=== PATIENT | male | born 1950 | race Caucasian/White ===

== ENCOUNTER 2016-09-13 10:22 | Outpatient (CLI) | payer MEDICARE, MEDICAID | END 2016-09-13 10:23 | disposition home or self-care (01) | DX: Z79.01 Long term (current) use of anticoagulants (principal); I48.91 Unspecified atrial fibrillation ==

== ENCOUNTER 2016-09-23 08:00 | Outpatient (CLI) | payer MEDICARE, MEDICAID | END 2016-09-23 23:59 | DX: I48.91 Unspecified atrial fibrillation (principal); Z79.01 Long term (current) use of anticoagulants ==

== ENCOUNTER 2016-09-30 13:48 | Outpatient (CLI) | payer MEDICARE, MEDICAID | END 2016-09-30 13:49 | disposition home or self-care (01) | DX: I48.91 Unspecified atrial fibrillation (principal); Z79.01 Long term (current) use of anticoagulants ==

== ENCOUNTER 2016-10-08 13:16 | Outpatient (CLI) | payer MEDICARE, MEDICAID | END 2016-10-08 13:17 | disposition home or self-care (01) | DX: I48.91 Unspecified atrial fibrillation (principal) ==

== ENCOUNTER 2016-10-21 08:20 | Outpatient (CLI) | payer MEDICARE, MEDICAID | END 2016-10-21 08:21 | disposition home or self-care (01) | DX: I48.91 Unspecified atrial fibrillation (principal); Z79.01 Long term (current) use of anticoagulants ==

== ENCOUNTER 2016-11-18 08:00 | Outpatient (CLI) | payer MEDICARE, MEDICAID | END 2016-11-18 08:01 | disposition home or self-care (01) | DX: I48.91 Unspecified atrial fibrillation (principal); Z79.01 Long term (current) use of anticoagulants ==

== ENCOUNTER 2016-12-16 08:00 | Outpatient (CLI) | payer MEDICARE, MEDICAID | END 2016-12-16 08:01 | DX: I48.91 Unspecified atrial fibrillation (principal); Z79.01 Long term (current) use of anticoagulants ==

== ENCOUNTER 2016-12-18 15:21 | Outpatient (CLI) | payer MEDICARE, MEDICAID | END 2016-12-18 15:22 | disposition home or self-care (01) | DX: R53.83 Other fatigue (principal) ==

== ENCOUNTER 2016-12-18 16:17 | Emergency (ER) | payer MEDICARE, MEDICAID ==
[2016-12-18] MEDS ORDERED: IOPAMIDOL-300 100 ML VIAL IVP ONE (20:21)
== END 2016-12-18 21:31 | disposition home or self-care (01) ==
DX: I48.91 Unspecified atrial fibrillation (principal); R53.83 Other fatigue; K80.20 Calculus of gallbladder without cholecystitis without obstruction; Z95.2 Presence of prosthetic heart valve; Z79.01 Long term (current) use of anticoagulants
CPT/HCPCS: 74160; 80053; 83690; 84484; 85025; 85610; 93005; 93010; 99284; 99285; Q9967

== ENCOUNTER 2017-01-06 13:34 | Outpatient (CLI) | payer MEDICARE, MEDICAID | END 2017-01-06 13:35 | disposition home or self-care (01) | DX: Z79.01 Long term (current) use of anticoagulants (principal); I48.91 Unspecified atrial fibrillation ==

== ENCOUNTER 2017-01-13 14:30 | Outpatient (CLI) | payer MEDICARE, MEDICAID | END 2017-01-13 14:31 | disposition home or self-care (01) | DX: I48.91 Unspecified atrial fibrillation (principal); Z79.01 Long term (current) use of anticoagulants ==

== ENCOUNTER 2017-01-20 12:48 | Outpatient (CLI) | payer MEDICARE, MEDICAID | END 2017-01-20 12:49 | disposition home or self-care (01) | LOC: LAB.S 12:48 | PROVIDERS: ATTEND Nurse Practitioner Family | DX: I48.91 Unspecified atrial fibrillation (principal); Z79.01 Long term (current) use of anticoagulants | CPT/HCPCS: 85610 ==

== ENCOUNTER 2017-02-24 13:20 | Outpatient (CLI) | payer MEDICARE, MEDICAID | END 2017-02-24 13:21 | disposition home or self-care (01) | LOC: LAB.S 13:20 | PROVIDERS: ATTEND Nurse Practitioner Family | DX: I48.91 Unspecified atrial fibrillation (principal); Z79.01 Long term (current) use of anticoagulants | CPT/HCPCS: 85610 ==

== ENCOUNTER 2017-03-24 08:00 | Outpatient (CLI) | payer MEDICARE, MEDICAID ==
[2017-03-24 18:47] LABS: BASOPHILS % (AUTO) 0.7 %; EOSINOPHILS # (AUTO) 0.2 10^3/uL (0.0-0.7); EOSINOPHILS % (AUTO) 3.9 %; HCT - HEMATOCRIT 45.1 % (42.0-52.0); LYMPHOCYTES % (AUTO) 16.4 %; MEAN CORPUSCULAR HEMOGLOBIN 31.1 pg (27.0-31.0); MEAN CORPUSCULAR HGB CONC 33.3 g/dL (32.0-36.0); MEAN CORPUSCULAR VOLUME 93.3 fL (80.0-94.0); MEAN PLATELET VOLUME 9.7 fL (7.4-11.4); MONOCYTES # (AUTO) 0.5 10^3/uL (0.0-1.0); MONOCYTES % (AUTO) 8.4 %; NEUTROPHILS # (AUTO) 4.3 10^3/uL (1.5-6.6); NEUTROPHILS % (AUTO) 70.6 %; RED BLOOD COUNT 4.83 10^6/uL (4.70-6.10); UNCORRECTED WHITE BLOOD COUNT 6.1 x10^3/uL; WHITE BLOOD COUNT 6.1 x10^3/uL (4.8-10.8)
[2017-03-24 19:01] LABS: ALBUMIN/GLOBULIN RATIO 1.8 (1.0-2.2); BILIRUBIN,TOTAL 1.2 mg/dL (0.2-1.0); BUN - BLOOD UREA NITROGEN 19 mg/dL (6-20); CALCIUM 9.1 mg/dL (8.5-10.3); CARBON DIOXIDE - CO2 30 mmol/L (21-32); CHLORIDE 105 mmol/L (101-111); CREATININE 0.7 mg/dL (0.6-1.2); GFR - MDRD 113 (>89); GLUCOSE 93 mg/dL (70-100); POTASSIUM 4.6 mmol/L (3.5-5.0); SODIUM 140 mmol/L (135-145); TOTAL PROTEIN 6.4 g/dL (6.7-8.2)
[2017-03-24 19:58] LABS: HEMOGLOBIN A1C 0.53 g/dL
[2017-03-24 20:18] LABS: THYROID STIMULATING HORMONE 1.06 uIU/mL (0.34-5.60)
== END 2017-03-24 08:01 | disposition home or self-care (01) ==
LOC: LAB.S 08:00
PROVIDERS: ATTEND Nurse Practitioner Family
DX: R53.83 Other fatigue (principal); R73.01 Impaired fasting glucose; I48.91 Unspecified atrial fibrillation; Z79.01 Long term (current) use of anticoagulants
CPT/HCPCS: 36415; 80053; 82607; 83036; 84443; 85025; 85610

== ENCOUNTER 2017-05-05 13:15 | Outpatient (CLI) | payer MEDICARE, MEDICAID | END 2017-05-05 13:16 | disposition home or self-care (01) | LOC: LAB.S 13:15 | PROVIDERS: ATTEND Nurse Practitioner Family | DX: I48.91 Unspecified atrial fibrillation (principal); Z79.01 Long term (current) use of anticoagulants | CPT/HCPCS: 85610 ==

== ENCOUNTER 2017-06-16 13:20 | Outpatient (CLI) | payer MEDICARE, MEDICAID | END 2017-06-16 13:21 | disposition home or self-care (01) | LOC: LAB.S 13:20 | PROVIDERS: ATTEND Nurse Practitioner Family | DX: I48.91 Unspecified atrial fibrillation (principal); Z79.01 Long term (current) use of anticoagulants | CPT/HCPCS: 85610 ==

== ENCOUNTER → 2017-06-23 | Outpatient (CLI) | payer MEDICARE, MEDICAID | LOC: LAB.S 08:00 | PROVIDERS: ATTEND Nurse Practitioner Family | DX: I48.91 Unspecified atrial fibrillation (principal); Z79.01 Long term (current) use of anticoagulants | CPT/HCPCS: 85610 ==

== ENCOUNTER 2017-07-21 08:00 | Outpatient (CLI) | payer MEDICARE, MEDICAID | END 2017-07-21 08:01 | disposition home or self-care (01) | LOC: LAB.S 08:00 | PROVIDERS: ATTEND Nurse Practitioner Family | DX: I48.91 Unspecified atrial fibrillation (principal); Z79.01 Long term (current) use of anticoagulants | CPT/HCPCS: 85610 ==

== ENCOUNTER 2017-08-18 13:47 | Outpatient (CLI) | payer MEDICARE, MEDICAID | END 2017-08-18 13:48 | disposition home or self-care (01) | LOC: LAB.S 13:47 | PROVIDERS: ATTEND Nurse Practitioner Family | DX: I48.91 Unspecified atrial fibrillation (principal); Z79.01 Long term (current) use of anticoagulants | CPT/HCPCS: 85610 ==

== ENCOUNTER 2017-09-15 13:26 | Outpatient (CLI) | payer MEDICARE, MEDICAID | END 2017-09-15 13:27 | disposition home or self-care (01) | LOC: LAB.S 13:26 | PROVIDERS: ATTEND Nurse Practitioner Family | DX: I48.91 Unspecified atrial fibrillation (principal); Z79.01 Long term (current) use of anticoagulants | CPT/HCPCS: 85610 ==

== ENCOUNTER 2017-10-29 11:07 | Outpatient (CLI) | payer MEDICARE, MEDICAID | END 2017-10-29 11:08 | disposition home or self-care (01) | LOC: LAB.F 11:07 | PROVIDERS: ATTEND Nurse Practitioner Family | DX: I48.91 Unspecified atrial fibrillation (principal); Z79.01 Long term (current) use of anticoagulants | CPT/HCPCS: 85610 ==

== ENCOUNTER 2017-11-19 12:08 | Outpatient (CLI) | payer MEDICARE, MEDICAID ==
--- NOTE | 2017-11-19 15:10 | XRAY Report ---
TWO VIEW CHEST: 11/19/2017 COMPARISON: No comparison. INDICATION: Shortness of breath. TECHNIQUE: Two views. FINDINGS: Clear lungs. No pneumothorax or pleural effusion. Sternotomy and prosthetic heart valve annulus are noted. Borderline heart size. IMPRESSION: NO EVIDENCE OF ACUTE THORACIC PROCESS. TD: 11/19/2017 15:09 [facility]
== END 2017-11-19 12:09 | disposition home or self-care (01) ==
LOC: DI.S 12:08
PROVIDERS: ATTEND Nurse Practitioner Family
DX: R06.02 Shortness of breath (principal)
CPT/HCPCS: 71046

== ENCOUNTER 2017-12-01 13:25 | Outpatient (CLI) | payer MEDICARE, MEDICAID | END 2017-12-01 13:26 | disposition home or self-care (01) | LOC: LAB.S 13:25 | PROVIDERS: ATTEND Nurse Practitioner Family | DX: I48.91 Unspecified atrial fibrillation (principal); Z79.01 Long term (current) use of anticoagulants | CPT/HCPCS: 85610 ==

== ENCOUNTER 2017-12-15 08:00 | Outpatient (CLI) | payer MEDICARE, MEDICAID | END 2017-12-15 08:01 | disposition home or self-care (01) | LOC: LAB.S 08:00 | PROVIDERS: ATTEND Nurse Practitioner Family | DX: I48.91 Unspecified atrial fibrillation (principal); Z79.01 Long term (current) use of anticoagulants | CPT/HCPCS: 85610 ==

== ENCOUNTER 2018-01-12 08:00 | Outpatient (CLI) | payer MEDICARE, MEDICAID | END 2018-01-12 08:01 | disposition home or self-care (01) | LOC: LAB.S 08:00 | PROVIDERS: ATTEND Nurse Practitioner Family | DX: I48.91 Unspecified atrial fibrillation (principal); Z79.01 Long term (current) use of anticoagulants | CPT/HCPCS: 85610 ==

== ENCOUNTER 2018-02-16 13:24 | Outpatient (CLI) | payer MEDICARE, MEDICAID | END 2018-02-16 13:25 | disposition home or self-care (01) | LOC: LAB.S 13:24 | PROVIDERS: ATTEND Nurse Practitioner Family | DX: I48.91 Unspecified atrial fibrillation (principal); Z79.01 Long term (current) use of anticoagulants | CPT/HCPCS: 85610 ==

== ENCOUNTER 2018-03-23 13:20 | Outpatient (CLI) | payer MEDICARE, MEDICAID | END 2018-03-23 13:21 | disposition home or self-care (01) | LOC: LAB.S 13:20 | PROVIDERS: ATTEND Nurse Practitioner Family | DX: I48.91 Unspecified atrial fibrillation (principal); Z79.01 Long term (current) use of anticoagulants | CPT/HCPCS: 85610 ==

== ENCOUNTER 2018-04-20 13:14 | Outpatient (CLI) | payer MEDICARE, MEDICAID | END 2018-04-20 13:15 | disposition home or self-care (01) | LOC: LAB.S 13:14 | PROVIDERS: ATTEND Nurse Practitioner Family | DX: Z79.01 Long term (current) use of anticoagulants (principal); I48.91 Unspecified atrial fibrillation | CPT/HCPCS: 85610 ==

== ENCOUNTER 2018-04-27 13:11 | Outpatient (CLI) | payer MEDICARE, MEDICAID | END 2018-04-27 13:12 | LOC: LAB.S 13:11 | PROVIDERS: ATTEND Nurse Practitioner Family | DX: I48.91 Unspecified atrial fibrillation (principal); Z79.01 Long term (current) use of anticoagulants | CPT/HCPCS: 85610 ==

== ENCOUNTER 2018-05-04 13:14 | Outpatient (CLI) | payer MEDICARE, MEDICAID | END 2018-05-04 13:15 | disposition home or self-care (01) | LOC: LAB.S 13:14 | PROVIDERS: ATTEND Nurse Practitioner Family | DX: I48.91 Unspecified atrial fibrillation (principal); Z79.01 Long term (current) use of anticoagulants | CPT/HCPCS: 85610 ==

== ENCOUNTER 2018-05-18 13:09 | Outpatient (CLI) | payer MEDICARE, MEDICAID | END 2018-05-18 13:10 | LOC: LAB.S 13:09 | PROVIDERS: ATTEND Nurse Practitioner Family | DX: I48.91 Unspecified atrial fibrillation (principal); Z79.01 Long term (current) use of anticoagulants | CPT/HCPCS: 85610 ==

== ENCOUNTER 2018-05-25 13:28 | Outpatient (CLI) | payer MEDICARE, MEDICAID | END 2018-05-25 13:29 | disposition home or self-care (01) | LOC: LAB.S 13:28 | PROVIDERS: ATTEND Nurse Practitioner Family | DX: I48.91 Unspecified atrial fibrillation (principal); Z79.01 Long term (current) use of anticoagulants | CPT/HCPCS: 85610 ==

== ENCOUNTER 2018-06-01 13:18 | Outpatient (CLI) | payer MEDICARE, MEDICAID | END 2018-06-01 13:19 | disposition home or self-care (01) | LOC: LAB.S 13:18 | PROVIDERS: ATTEND Nurse Practitioner Family | DX: I48.91 Unspecified atrial fibrillation (principal); Z79.01 Long term (current) use of anticoagulants | CPT/HCPCS: 85610 ==

== ENCOUNTER 2018-06-29 13:23 | Outpatient (CLI) | payer MEDICARE, MEDICAID | END 2018-06-29 13:24 | disposition home or self-care (01) | LOC: LAB.S 13:23 | PROVIDERS: ATTEND Nurse Practitioner Family | DX: Z79.01 Long term (current) use of anticoagulants (principal); I48.91 Unspecified atrial fibrillation | CPT/HCPCS: 85610 ==

== ENCOUNTER 2018-07-06 09:45 | Outpatient (CLI) | payer MEDICARE, MEDICAID ==
[2018-07-06 17:56] LABS: ALBUMIN 4.3 g/dL (3.2-5.5); ALBUMIN/GLOBULIN RATIO 1.6 (1.0-2.2); ALKALINE PHOSPHATASE 56 IU/L (42-121); ALT ALANINE AMINOTRANSFERASE 29 IU/L (10-60); AST ASPARTATE AMINOTRANSFERASE 33 IU/L (10-42); BILIRUBIN,TOTAL 2.2 mg/dL (0.2-1.0); BUN - BLOOD UREA NITROGEN 20 mg/dL (6-20); CALCIUM 9.4 mg/dL (8.5-10.3); CARBON DIOXIDE - CO2 30 mmol/L (21-32); CHLORIDE 103 mmol/L (101-111); CHOL/HDL RATIO 2.9 (<5.0); CHOLESTEROL 149 mg/dL; CREATININE 0.8 mg/dL (0.6-1.2); GFR - MDRD 96 (>89); GLUCOSE 85 mg/dL (70-100); HDL CHOLESTEROL 52 mg/dL; LDL CHOLESTEROL,CALCULATED 85 mg/dL; LDL/HDL RATIO 1.6 (<3.6); SODIUM 141 mmol/L (135-145); VLDL CHOLESTEROL 12 mg/dL
[2018-07-06 17:57] LABS: THYROID STIMULATING HORMONE 0.8 uIU/mL (0.34-5.60)
== END 2018-07-06 09:46 | disposition home or self-care (01) ==
LOC: LAB.S 09:45
PROVIDERS: ATTEND Nurse Practitioner Family
DX: I10 Essential (primary) hypertension (principal); Z12.5 Encounter for screening for malignant neoplasm of prostate; R23.2 Flushing
CPT/HCPCS: 36415; 80053; 80061; 82607; 84443; G0103; 83036; 83540; 83721; 84153; 84466

== ENCOUNTER 2018-07-23 07:11 | Outpatient (CLI) | payer MEDICARE, MEDICAID ==
--- NOTE | 2018-07-23 09:39 | Ultrasound Report ---
Reason: ELEVATED BILIRUBIN Procedure Date: 07/23/2018 Accession Number: [id number] / [id number] Procedure: US - Abdomen Limited CPT Code: FULL RESULT: EXAM: ABDOMEN ULTRASOUND LIMITED, RUQ EXAM DATE: 07/23/2018 08:36 AM. CLINICAL HISTORY: Elevated bilirubin. COMPARISON: Abdomen w/contrast 12/18/2016 8:14 PM. TECHNIQUE: Real-time scanning was performed with static images obtained. FINDINGS: Liver: Normal in size and echotexture. 15.8 cm. Main portal vein flow: Hepatopetal. Gallbladder: There are 3 mobile echogenic stones within the gallbladder lumen measuring 11, 13 and 8 mm respectively. These are also noted on prior CT and are unchanged. There is no gallbladder wall thickening or pericholecystic fluid. Patient is nontender to imaging. Biliary System: CBD measures 4.6 mm. No intrahepatic or extrahepatic ductal dilatation. Other: None. IMPRESSION: 1. Stable cholelithiasis without evidence of cholecystitis or biliary ductal dilatation. 2. Normal sonographic appearance to the liver parenchyma. RADIA
== END 2018-07-23 07:12 | disposition home or self-care (01) ==
LOC: DI 07:11
PROVIDERS: ATTEND Nurse Practitioner Family
DX: R17 Unspecified jaundice (principal); K80.20 Calculus of gallbladder without cholecystitis without obstruction
CPT/HCPCS: 76705

== ENCOUNTER 2018-08-03 08:00 | Outpatient (CLI) | payer MEDICARE, MEDICAID | END 2018-08-03 08:01 | disposition home or self-care (01) | LOC: LAB.S 08:00 | PROVIDERS: ATTEND Nurse Practitioner Family | DX: I48.91 Unspecified atrial fibrillation (principal); Z79.01 Long term (current) use of anticoagulants | CPT/HCPCS: 85610 ==

== ENCOUNTER 2018-09-07 08:00 | Outpatient (CLI) | payer MEDICARE, MEDICAID | END 2018-09-07 23:59 | disposition home or self-care (01) | LOC: LAB.S 08:00 | PROVIDERS: ATTEND Nurse Practitioner Family | DX: I48.91 Unspecified atrial fibrillation (principal); Z79.01 Long term (current) use of anticoagulants | CPT/HCPCS: 85610 ==

== ENCOUNTER 2018-10-14 13:52 | Outpatient (CLI) | payer MEDICARE, MEDICAID | END 2018-10-14 13:53 | disposition home or self-care (01) | LOC: LAB.F 13:52 | PROVIDERS: ATTEND Nurse Practitioner Family | DX: Z79.01 Long term (current) use of anticoagulants (principal); Z95.2 Presence of prosthetic heart valve | CPT/HCPCS: 85610 ==

== ENCOUNTER 2018-10-22 13:29 | Outpatient (CLI) | payer MEDICARE, MEDICAID | END 2018-10-22 13:30 | disposition home or self-care (01) | LOC: LAB.F 13:29 | PROVIDERS: ATTEND Nurse Practitioner Family | DX: Z79.01 Long term (current) use of anticoagulants (principal); Z95.2 Presence of prosthetic heart valve | CPT/HCPCS: 85610 ==

== ENCOUNTER 2018-10-30 10:35 | Outpatient (CLI) | payer MEDICARE, MEDICAID | END 2018-10-30 10:36 | disposition home or self-care (01) | LOC: LAB.F 10:35 | PROVIDERS: ATTEND Nurse Practitioner Family | DX: Z51.81 Encounter for therapeutic drug level monitoring (principal); Z79.01 Long term (current) use of anticoagulants; Z95.2 Presence of prosthetic heart valve | CPT/HCPCS: 85610 ==

== ENCOUNTER 2018-11-20 10:28 | Outpatient (CLI) | payer MEDICARE, MEDICAID | END 2018-11-20 10:29 | disposition home or self-care (01) | LOC: LAB.F 10:28 | PROVIDERS: ATTEND Nurse Practitioner | DX: I48.2 Chronic atrial fibrillation (principal) | CPT/HCPCS: 85610 ==

== ENCOUNTER 2018-11-27 10:24 | Outpatient (CLI) | payer MEDICARE, MEDICAID | END 2018-11-27 10:25 | disposition home or self-care (01) | LOC: LAB.F 10:24 | PROVIDERS: ATTEND Nurse Practitioner | DX: I48.2 Chronic atrial fibrillation (principal) | CPT/HCPCS: 85610 ==

== ENCOUNTER 2018-12-07 08:00 | Outpatient (CLI) | payer MEDICARE, MEDICAID ==
[2018-12-07 18:18] LABS: ALBUMIN 4.4 g/dL (3.2-5.5); ALBUMIN/GLOBULIN RATIO 1.7 (1.0-2.2); BILIRUBIN,TOTAL 2.4 mg/dL (0.2-1.0); CALCIUM 9.9 mg/dL (8.5-10.3); CREATININE 0.7 mg/dL (0.6-1.2)
[2018-12-07 19:25] LABS: BASOPHILS % (AUTO) 0.4 %; EOSINOPHILS % (AUTO) 0.2 %; HGB - HEMOGLOBIN 16.6 g/dL (14.0-18.0); LYMPHOCYTES # (AUTO) 1.1 10^3/uL (1.5-3.5); LYMPHOCYTES % (AUTO) 12.9 %; MEAN CORPUSCULAR HEMOGLOBIN 30.8 pg (27.0-31.0); MEAN CORPUSCULAR HGB CONC 33.6 g/dL (32.0-36.0); MEAN CORPUSCULAR VOLUME 91.7 fL (80.0-94.0); MEAN PLATELET VOLUME 9.7 fL (7.4-11.4); MONOCYTES # (AUTO) 0.6 10^3/uL (0.0-1.0); MONOCYTES % (AUTO) 6.7 %; NEUTROPHILS # (AUTO) 6.8 10^3/uL (1.5-6.6); NEUTROPHILS % (AUTO) 79.8 %; PLT - PLATELET COUNT 173 10^3/uL (130-450); RED BLOOD COUNT 5.38 10^6/uL (4.70-6.10); RED CELL DISTRIBUTION WIDTH 13.8 % (12.0-15.0); WHITE BLOOD COUNT 8.5 x10^3/uL (4.8-10.8)
== END 2018-12-07 23:59 | disposition home or self-care (01) ==
LOC: LAB.S 08:00
PROVIDERS: ATTEND Nurse Practitioner
DX: Z00.00 Encounter for general adult medical examination without abnormal findings (principal); I48.2 Chronic atrial fibrillation
CPT/HCPCS: 36415; 80053; 84443; 85025

== ENCOUNTER 2018-12-11 10:24 | Outpatient (CLI) | payer MEDICARE, MEDICAID | END 2018-12-11 10:25 | disposition home or self-care (01) | LOC: LAB.F 10:24 | PROVIDERS: ATTEND Nurse Practitioner | DX: I48.2 Chronic atrial fibrillation (principal) | CPT/HCPCS: 85610 ==

== ENCOUNTER 2018-12-21 08:00 | Outpatient (CLI) | payer MEDICARE, MEDICAID | END 2018-12-21 23:59 | disposition home or self-care (01) | LOC: LAB.S 08:00 | PROVIDERS: ATTEND Nurse Practitioner | DX: I48.2 Chronic atrial fibrillation (principal) | CPT/HCPCS: 85610 ==

== ENCOUNTER 2018-12-28 08:00 | Outpatient (CLI) | payer MEDICARE, MEDICAID ==
[2018-12-28 17:46] LABS: ALBUMIN 4.2 g/dL (3.2-5.5); BILIRUBIN,DIRECT 0.2 mg/dL (0.1-0.5); BILIRUBIN,TOTAL 1.6 mg/dL (0.2-1.0); TOTAL PROTEIN 6.6 g/dL (6.7-8.2)
[2018-12-29 12:30] LABS: HEPATITIS C ANTIBODY NON-REACTIVE (NON-REACTIVE)
== END 2018-12-28 23:59 | disposition home or self-care (01) ==
LOC: LAB.S 08:00
PROVIDERS: ATTEND Nurse Practitioner
DX: R74.8 Abnormal levels of other serum enzymes (principal); I48.2 Chronic atrial fibrillation
CPT/HCPCS: 36415; 80076; 85610; 86317; 86709; 86803

== ENCOUNTER 2019-01-15 10:55 | Outpatient (CLI) | payer MEDICARE, MEDICAID | END 2019-01-15 10:56 | disposition home or self-care (01) | LOC: LAB.F 10:55 | PROVIDERS: ATTEND Nurse Practitioner | DX: I48.2 Chronic atrial fibrillation (principal) | CPT/HCPCS: 85610 ==

== ENCOUNTER 2019-01-29 10:54 | Outpatient (CLI) | payer MEDICARE, MEDICAID | END 2019-01-29 10:55 | disposition home or self-care (01) | LOC: LAB.F 10:54 | PROVIDERS: ATTEND Nurse Practitioner | DX: I48.2 Chronic atrial fibrillation (principal) | CPT/HCPCS: 85610 ==

== ENCOUNTER 2019-02-15 08:00 | Outpatient (CLI) | payer MEDICARE, MEDICAID | END 2019-02-15 23:59 | disposition home or self-care (01) | LOC: LAB.S 08:00 | PROVIDERS: ATTEND Nurse Practitioner | DX: I48.2 Chronic atrial fibrillation (principal) | CPT/HCPCS: 85610 ==

== ENCOUNTER 2019-02-26 11:47 | Outpatient (CLI) | payer MEDICARE, MEDICAID | END 2019-02-26 11:48 | disposition home or self-care (01) | LOC: LAB.F 11:47 | PROVIDERS: ATTEND Nurse Practitioner | DX: I48.2 Chronic atrial fibrillation (principal) | CPT/HCPCS: 85610 ==

== ENCOUNTER 2019-03-16 13:40 | Outpatient (CLI) | payer MEDICARE, MEDICAID | END 2019-03-16 13:41 | disposition home or self-care (01) | LOC: LAB.S 13:40 | PROVIDERS: ATTEND Registered Nurse | DX: Z79.01 Long term (current) use of anticoagulants (principal); Z95.2 Presence of prosthetic heart valve; I48.2 Chronic atrial fibrillation | CPT/HCPCS: 85610 ==

== ENCOUNTER 2019-04-20 13:31 | Outpatient (CLI) | payer MEDICARE, MEDICAID | END 2019-04-20 13:32 | disposition home or self-care (01) | LOC: LAB.S 13:31 | PROVIDERS: ATTEND Internal Medicine | DX: I48.2 Chronic atrial fibrillation (principal); Z95.2 Presence of prosthetic heart valve; Z79.01 Long term (current) use of anticoagulants | CPT/HCPCS: 85610 ==

== ENCOUNTER 2019-04-27 13:30 | Outpatient (CLI) | payer MEDICARE, MEDICAID | END 2019-04-27 13:31 | disposition home or self-care (01) | LOC: LAB.S 13:30 | PROVIDERS: ATTEND Internal Medicine | DX: I48.2 Chronic atrial fibrillation (principal) | CPT/HCPCS: 85610 ==

== ENCOUNTER 2019-05-05 17:44 | Observation (INO) | payer MEDICARE, MEDICAID ==
--- NOTE | 2019-05-05 18:11 | ED Physician Documentation ---
PD HPI FOCAL NEURO - Stated complaint Stated Complaint: CONFUSION - Chief complaint Chief Complaint: Neuro - History obtained from History obtained from: Patient - History of Present Illness Timing - onset: Today (68-year-old gentleman with history of mechanical heart valve about 15 years old and on warfarin for same presents with confusion that started midday today. He said he was dropping his [id number] off and he does not remember where he got dropped off and then he went to the gas station. His [id number] had given him $10 to use the gas station but he forgot about that and try to use his KATELYN card, but could not remember his pin. He still feels mildly confused but mostly better. There is no associated chest pain or trouble breathing. No headache.) Review of Systems Ten Systems: 10 systems reviewed and negative Constitutional: denies: Fever, Chills Throat: denies: Dental pain / toothache, Sore throat Cardiac: denies: Chest pain / pressure, Palpitations Respiratory: denies: Dyspnea, Cough GI: denies: Abdominal Pain, Nausea, Vomiting PD PAST MEDICAL HISTORY - Past Medical History Past Medical History: Yes - Past Surgical History Past Surgical History: Yes Cardiovascular: Valve replacement HEENT: Tonsil/Adenoidectomy - Present Medications Home Medications: Ambulatory Orders Medication Instructions Recorded Confirmed Amlodipine/Atorvastatin 10 mg ORAL ONCE 04/25/14 04/26/14 [Amlodipine-Atorvast 10-10 mg] Enoxaparin Sodium [Lovenox] 30 mg SUBQ BID 04/25/14 04/26/14 Furosemide 40 mg ORAL DAILY 04/25/14 04/26/14 Lisinopril 20 mg ORAL BID 04/25/14 04/26/14 Metoprolol Succinate [Toprol Xl] 50 mg ORAL BID 04/25/14 04/26/14 Potassium Chloride 10 meq ORAL DAILY 04/25/14 04/26/14 Warfarin Sodium [Jantoven] 2.5 mg ORAL DAILY 04/25/14 04/26/14 - Allergies Allergies/Adverse Reactions: Allergies Allergy/AdvReac Type Severity Reaction Status Date / Time No Known Drug Allergies Allergy Verified 05/05/19 17:52 - Social History Does the pt smoke?: No Smoking Status: Never smoker Does the pt drink ETOH?: No Does the pt have substance abuse?: Yes - Immunizations Immunizations are current?: Yes - POLST Patient has POLST: No PD ED PE NORMAL - Vitals Vital signs reviewed: Yes - General General: Other (He thinks the date is May 03 but cannot come up with the year. He can name his address. What high school he went to. He is a decent historian.) - HEENT HEENT: PERRL, EOMI - Neck Neck: Supple, no meningeal sign, No bony TTP - Cardiac Cardiac: Other (Irregularly irregular with systolic murmur and loud closing clic k) - Respiratory Respiratory: No respiratory distress, Clear bilaterally - Abdomen Abdomen: Soft, Non tender - Back Back: No CVA TTP, No spinal TTP - Derm Derm: Normal color, Warm and dry - Extremities Extremities: No edema, No calf tenderness / cord - Neuro Neuro: respite care provider 2-12 intact, Normal speech Eye Opening: Spontaneous Motor: Obeys Commands Verbal: Confused GCS Score: 14 - Psych Psych: Normal mood, Normal affect NIHSS - Time Time: 18:05 - Level of Consciousness Level of consciousness: (0) Alert, Keenly responsive LOC Questions: (1) Answers one Q correctly LOC Commands: (0) Performs both correctly - Gaze Best Gaze: (0) Normal - Visual Visual: (0) No loss - Facial Palsy Facial Palsy: (0) Normal, symmetrical movement - Motor Arms (both separate) Motor Arm (right): (0) No drift Motor Arm (left): (0) No drift - Motor Legs (both separate) Motor Leg (right): (0) No drift Motor Leg (left): (0) No drift - Limb Ataxia Limb Ataxia: (0) Absent - Sensory Sensory: (0) Normal - Best Language Best Language: (0) No aphasia - Dysarthria Dysarthria: (0) Normal - Extinction and Inattention (formally neg Extinction and inattention: (0) No abnormality - Total Score/Results Total Score/Result: 1 Results - Vitals Vitals: Vital Signs - 24 hr 05/05/19 05/05/19 17:52 17:57 Temperature 36.5 C Heart Rate 76 76 Respiratory 14 14 Rate Blood Pressure 173/94 H 173/94 H O2 Saturation 94 94 Oxygen O2 Source Room air - EKG (time done) 1813 Rate: Rate (enter#) (82) Rhythm: Atrial fibrillation [place]: Normal Ischemia: Non specific changes. No: ST elevation c/w ischemia Computer interpretation: Agree with computer - Labs Labs: Laboratory Tests 05/05/19 05/05/19 05/05/19 18:16 18:16 18:16 WBC 8.0 RBC 5.16 Hgb 15.1 Hct 47.2 MCV 91.5 MCH 29.3 MCHC 32.0 RDW 12.2 Plt Count 280 MPV 10.3 Neut # (Auto) Not Reportable Lymph # (Auto) Not Reportable [place] # (Auto) Not Reportable Eos # (Auto) Not Reportable Baso # (Auto) Not Reportable Absolute Nucleated RBC Not Reportable Total Counted 100 Band Neuts % (Manual) 0 Abnorm Lymph % (Manual) 0 Nucleated RBC % Not Reportable Neutrophils # (Manual) 7.4 H Lymphocytes # (Manual) 0.3 L Monocytes # (Manual) 0.3 Eosinophils # (Manual) 0.0 Basophils # (Manual) 0.0 Differential Comment MANUAL DIFFERENTIAL Manual Slide Review Indicated WBC Morphology NORMAL APPEARANCE Platelet Estimate NORMAL (130-450,000) Platelet Morphology NORMAL APPEARANCE RBC Morph Micro Appear NORMAL APPEARANCE PT 40.8 H INR 3.7 H Sodium 138 Potassium 4.8 Chloride 101 Carbon Dioxide 29 Anion Gap 8.0 BUN 20 Creatinine 0.7 Estimated GFR (MDRD) 112 Glucose 131 H Calcium 9.6 Total Bilirubin 1.3 H AST 32 ALT 25 Alkaline Phosphatase 80 Total Protein 7.6 Albumin 3.9 Globulin 3.7 Albumin/Globulin Ratio 1.1 Lipase 82 H - Rads (name of study) CT Head Radiology: EMP read contemporaneously (Old R lacune/NAD) PD MEDICAL DECISION MAKING - ED course ED course: 68-year-old gentleman with history of mechanical heart valve on warfarin presents with a syndrome most closely consistent with transient global amnesia. This is a 68-year-old gentleman with a prosthetic heart valve on warfarin who presents with signs and symptoms most consistent with transient global amnesia. Initial ED work-up was negative except for a lacunar infarct that is old. His examination really did not change during his ED stay. Spoke with Dr. Mcneal for observation at 7:45 PM. Departure - Departure Disposition: ED Place in Observation Clinical Impression: Transient global amnesia Condition: Fair
[2019-05-05 18:34] LABS: ALBUMIN 3.9 g/dL (3.2-5.5); ALBUMIN/GLOBULIN RATIO 1.1 (1.0-2.2); BILIRUBIN,TOTAL 1.3 mg/dL (0.2-1.0); CALCIUM 9.6 mg/dL (8.5-10.3); CREATININE 0.7 mg/dL (0.6-1.2); TOTAL PROTEIN 7.6 g/dL (6.7-8.2)
[2019-05-05 18:37] LABS: INR 3.7 (0.8-1.2); PT - PROTHROMBIN TIME 40.8 secs (9.9-12.6)
[2019-05-05 19:04] LABS: BASOPHILS % (AUTO) 0.4 %; EOSINOPHILS % (AUTO) 1.9 %; HGB - HEMOGLOBIN 15.1 g/dL (14.0-18.0); LYMPHOCYTES % (AUTO) 4.9 %; MEAN CORPUSCULAR HEMOGLOBIN 29.3 pg (27.0-31.0); MEAN CORPUSCULAR VOLUME 91.5 fL (80.0-94.0); MEAN PLATELET VOLUME 10.3 fL (7.4-11.4); MONOCYTES % (AUTO) 3.9 %; NEUTROPHILS % (AUTO) 88.5 %; PLT - PLATELET COUNT 280 10^3/uL (130-450); RED BLOOD COUNT 5.16 10^6/uL (4.70-6.10); RED CELL DISTRIBUTION WIDTH 12.2 % (12.0-15.0)
--- NOTE | 2019-05-05 19:05 | CT Report ---
Reason: confusion Procedure Date: 05/05/2019 Accession Number: [id number] / [id number] Procedure: CT - HEAD WO CPT Code: FULL RESULT: EXAM: CT HEAD EXAM DATE: 05/05/2019 06:29 PM. CLINICAL HISTORY: Confusion. COMPARISON: None. TECHNIQUE: Multiaxial CT images were obtained from the foramen magnum to the vertex. Reformats: Sagittal and coronal. IV contrast: None. In accordance with CT protocol optimization, one or more of the following dose reduction techniques were utilized for this exam: automated exposure control, adjustment of mA and/or KV based on patient size, or use of iterative reconstructive technique. FINDINGS: Parenchyma: No intraparenchymal hemorrhage. No evidence of mass, midline shift, or CT findings of acute infarction. Small right lacunar infarction. Workman-white differentiation is distinct. Mild chronic microangiopathic white matter changes. Extraaxial Spaces: Normal for age. No subdural or epidural collections. Ventricles: The ventricles and cortical sulci are enlarged, consistent with age-related tissue loss. Sinuses and orbits: Imaged paranasal sinuses, orbits, and mastoids show no significant abnormality. Bones: Unremarkable. Other: None. IMPRESSION: Old right lacunar infarction and other chronic findings. No definite acute disease. RADIA
[2019-05-05 19:06] LABS: ABNORMAL LYMPHS % (MANUAL) 0 %; BAND NEUTROPHILS % (MANUAL) 0 %
[2019-05-05 19:34] LABS: DIFFERENTIAL COMMENT MANUAL DIFFERENTIAL; LYMPHOCYTES # (MANUAL) 0.3 10^3/uL (1.5-3.5); LYMPHOCYTES % (MANUAL) 4 %; MONOCYTES # (MANUAL) 0.3 10^3/uL (0.0-1.0); PLATELET ESTIMATE, MANUAL NORMAL (130-450,000) (NORMAL); PLATELET MORPHOLOGY NORMAL APPEARANCE (NORMAL); RBC MORPHOLOGY (MULTIPLE) NORMAL APPEARANCE (NORMAL)
[2019-05-05] MEDS ORDERED: THIAMINE INJ 100 MG in SODIUM CHLORIDE 0.9% 50 ML IV STA (19:51)
[2019-05-05] MEDS ORDERED: ACETAMINOPHEN 325 MG TABLET PO PRN (19:52)
[2019-05-05] MEDS ORDERED: SODIUM CHLORIDE FLUSH 0.9% 10 ML SYRINGE IVP PRN (19:52)
[2019-05-05] MEDS: METOPROLOL SUCCINATE 50 MG TABLET PO SCH (21:53)
--- NOTE | 2019-05-05 22:06 | HISTORY & PHYSICAL EXAMINATION ---
Chief Complaint - Chief Complaint Chief Complaint: Forgetfulness History of Present Illness - Admitted From Admitted From:: Home - History Obtained From Records Reviewed: Yes History obtained from: Patient, ER Physician - History of Present Illness HPI Comment/Other: This is a 68 year old male with a past medical history significant for mechanical aortic valve, and hypertension who presents from home after he had an episode of forgetfulness today. He states that he dropped his brother in law off in [place], [place] and that he was given $10 by said person for gas. The patient could not recall dropping off his brother in law. He remembers going to the gas station but he forgot he received $10 for gas. He attempted to use his KATELYN card but he could not remember his PIN. He then drove home to his sister who had received a call from her that he felt the patient was a little off this morning. The patient could not clarify what his brother in law meant by "off". This had all occurred around noon. He called his primary care doctor to make an appointment but one was not available until the following day. A nurse then called him back recommending to go to the emergency department for further evaluation. The patient reports he has never had a similar episode before. He reports no headache, blurry vision, weakness, numbness or slurred speech. He reports no alcohol or drug use except for marijuana which he uses almost daily. He reports no recent sick contacts and that he was in his usual state of health. He reports no history of seizures. He currently reports feeling back to his baseline. In the ER, he was found to afebrile but hypertensive with systolic's in the 170's. Labs were unremarkable except for an INR of 3.7. A CT of the head was completed which showed no acute process but did reveal an old right lacunar infarction. The patient will be admitted under observation for further monitoring and workup. History - Past Medical History Cardiovascular: reports: Hypertension, Valve disorder (Mechanical aortic valve) Respiratory: reports: None Neuro: reports: CVA Endocrine/Autoimmune: reports: None GI: reports: None : reports: None Psych: reports: None Musculoskeletal: reports: None Derm: reports: None MRSA Hx?: No - Past Surgical History Cardiovascular: reports: Valve replacement HEENT: reports: Tonsil/Adenoidectomy - Family & Social History Family History Comment/Other: He reports a family history of heart disease. Denies a family history of amnesia or seizures. Living arrangement: At home Living Situation: With family Social History Notes: He [address] on 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 He currently lives with his sister and brother in law but is working on getting his own place. He denies alcohol use but states he will have a beer every once in a while. Endorses marijuana use on nearly a daily basis. He denies illicit drug use. - Substance History Use: Uses substance without health or social issues: Cannabis - POLST Patient has POLST: No Meds/Allgy - Home Medications Home Medications: Ambulatory Orders Medication Instructions Recorded Confirmed Amlodipine/Atorvastatin 10 mg ORAL ONCE 04/25/14 04/26/14 [Amlodipine-Atorvast 10-10 mg] Enoxaparin Sodium [Lovenox] 30 mg SUBQ BID 04/25/14 04/26/14 Furosemide 40 mg ORAL DAILY 04/25/14 04/26/14 Lisinopril 20 mg ORAL BID 04/25/14 04/26/14 Metoprolol Succinate [Toprol Xl] 50 mg ORAL BID 04/25/14 04/26/14 Potassium Chloride 10 meq ORAL DAILY 04/25/14 04/26/14 Warfarin Sodium [Jantoven] 2.5 mg ORAL DAILY 04/25/14 04/26/14 - Allergies Allergies/Adverse Reactions: Allergies Allergy/AdvReac Type Severity Reaction Status Date / Time No Known Drug Allergies Allergy Verified 05/05/19 17:52 Review of Systems - Constitutional Constitutional: denies: Fatigue, Fever, Chills, Weakness - Eyes Eyes: denies: Blurred vision - Cardiovascular Cariovascular: denies: Chest pain, Exertional dyspnea, Decr. exercise tolerance - Respiratory Respiratory: denies: SOB at rest, SOB with exertion - Gastrointestinal Gastrointestinal: denies: Abdominal pain, Nausea, Vomiting - Genitourinary Genitourinary: denies: Dysuria, Frequency, Urgency - Musculoskeletal Musculoskeletal: denies: Limited range of motion, Muscle weakness - Integumentary Integumentary: denies: Rash - Neurological Neurological: reports: Memory problems. denies: General weakness, Focal weakness, Headache, Dizziness, Numbness - All Other Systems All Other Systems: reports: Reviewed and negative Prior Level of Functionality: Independent with ADL's. Exam - Vital Signs Reviewed Vital Signs: Yes Vital Signs: Vital Signs x48h Temp Pulse Pulse Resp BP BP Pulse Ox 05/05/19 20:25 37 C 94 18 174/99 H 94 05/05/19 19:57 80 16 146/99 H 95 05/05/19 17:57 76 14 173/94 H 94 05/05/19 17:52 36.5 C 76 14 173/94 H 94 - Physical Exam General Appearance: positive: No acute distress, Alert Eyes Bilateral: positive: Normal inspection, PERRL ENT: positive: ENT inspection nml Neck: positive: Nml inspection Respiratory: positive: No respiratory distress, Breath sounds nml. negative: Wheezes, Rales, Rhonchi Cardiovascular: positive: Irregularly irregular, Other (Mechanical click noted). negative: Tachycardia, Bradycardia Abdomen: positive: Non-tender, Nml bowel sounds, No distention. negative: Tende rness, Guarding, Rebound Skin: positive: Color nml, No rash, Warm, Dry Extremities: positive: Non-tender, Full ROM, No pedal edema. negative: Pedal e sim Neurologic/Psychiatric: positive: Oriented x3, CN's nml (2-12), Motor nml, Sensation nml. negative: Disoriented to person, Disoriented to place, Disoriented to time, Weakness, Sensory loss, Facial droop, Slurred/abnml speech Conclusion/Plan - Problem List (1) Transient global amnesia Conclusion/Plan: His presentation is consistent with transient global amnesia. His symptoms have already resolved. CT of the head negative for acute process but did reveal old infarct. Blood glucose is normal. Low suspicion for TIA given no deficits on exam during episode except for memory loss. - Thiamine 100mg IV once as recommended by uptodate as Wernicke's can present with similar symptoms - MRI Brain in the AM - Check urine drug screen - Will likely require outpatient EEG to rule out seizures as cause - Observation overnight with likely discharge in the AM (2) Hypertension Conclusion/Plan: He has a history of hypertension and he is currently hypertensive with systolic's in the 170's. He is on Lisinopril, Norvasc and Toprol at home. EKG concerning for LVH. - Resume home antihypertensives and titrate as necessary (3) History of CVA (cerebrovascular accident) without residual deficits Conclusion/Plan: He has a history of CVA as evident on his CT of the head which revealed an old right lacunar infarct which is likely secondary to his poorly controlled hypertension rather than atrial fibrillation. This is new to the patient's knowledge. He is not on aspirin but is on low dose Lipitor and coumadin. No re sidual deficits. - Continue Coumadin - Increase Lipitor dose to 80mg - Check A1c and Lipid panel (4) History of mechanical aortic valve replacement Conclusion/Plan: He reports his aortic valve was replaced approximately 15 years ago. He is on coumadin and INR is 3.7. Stable. - Hold Coumadin tonight - Check INR in AM (5) Atrial fibrillation Conclusion/Plan: He reports no prior history of atrial fibrillation but his EKG revealed atrial fibrillation. He is rate controlled on Metoprolol. Already on coumadin due to hi s history mechanical aortic valve. - Continue Metoprolol and Coumadin - Monitor on telemetry Qualifiers: Atrial fibrillation type: unspecified Qualified Code(s): I48.91 - Unspecified atrial fibrillation - Lab Results Lab results reviewed: Yes Frank Bones: 05/05/19 18:16 05/05/19 18:16 - Diagnostic Imaging Results Diagnostic Imaging Results: positive: Final report reviewed - EKG Results EKG Interpreted Independently: Yes EKG Findings: Atrial fibrillation. Rate controlled. No ST segment changes. Core Measures - Anticipated LOS I expect patient to be DC'd or transferred within 96 hours.: Yes - Issues Hospital Issues and Management Plan: Admitted for transiet global amnesia. Will observe overnight and obtain MRI of the brain. - DVT/VTE - Prophylaxis VTE/DVT Device ordered at admit?: Yes VTE/DVT Prophylaxis med ordered at admit?: Yes
[2019-05-06] MEDS: SODIUM CHLORIDE FLUSH 0.9% 10 ML SYRINGE IVP SCH ×2 (00:36→08:12)
[2019-05-06 00:59] LABS: BILIRUBIN,URINE NEGATIVE (NEGATIVE); GLUCOSE, URINE (UA) NEGATIVE (NEGATIVE); KETONES,URINE (UA) 15 mg/dL (NEGATIVE); LEUKOCYTE ESTERASE, URINE NEGATIVE (NEGATIVE); MUDS CUTOFF CONCENTRATIONS CUTOFF CONC BELOW:; NITRITE,URINE NEGATIVE (NEGATIVE); OCCULT BLOOD,URINE NEGATIVE (NEGATIVE); PH,URINE 6.5 PH (5.0-7.5); PROTEIN,URINE NEGATIVE (NEGATIVE); UROBILINOGEN,URINE 0.2 (NORMAL) E.U./dL (NORMAL)
[2019-05-06 01:07] LABS: CLARITY,URINE CLEAR (CLEAR)
[2019-05-06 01:09] LABS: BACTERIA,URINE None Seen /HPF (None Seen); RBC,URINE 0-5 /HPF (0-5); SQUAMOUS EPITHELIAL CELL,UR NONE SEEN (<= Few)
[2019-05-06 01:10] LABS: AMPHETAMINE SCREEN,URINE NEGATIVE (NEGATIVE); BENZODIAZEPINES SCREEN, URINE NEGATIVE (NEGATIVE); COCAINE SCREEN URINE NEGATIVE (NEGATIVE); METHADONE SCREEN, URINE NEGATIVE (NEGATIVE); METHAMPHETAMINES SCREEN, URINE NEGATIVE (NEGATIVE); OPIATE SCREEN, URINE NEGATIVE (NEGATIVE); OXYCODONE SCREEN, URINE NEGATIVE (NEGATIVE); PROPOXYPHENE SCREEN, URINE NEGATIVE (NEGATIVE); TRICYCLIC ANTIDEPRESSANT,URINE NEGATIVE (NEGATIVE)
[2019-05-06 04:58] LABS: BASOPHILS % (AUTO) 0.2 %; EOSINOPHILS % (AUTO) 0.1 %; HGB - HEMOGLOBIN 14.7 g/dL (14.0-18.0); LYMPHOCYTES # (AUTO) 0.8 10^3/uL (1.5-3.5); MEAN CORPUSCULAR HEMOGLOBIN 29.1 pg (27.0-31.0); MEAN CORPUSCULAR VOLUME 90.9 fL (80.0-94.0); MEAN PLATELET VOLUME 10.2 fL (7.4-11.4); MONOCYTES # (AUTO) 0.5 10^3/uL (0.0-1.0); MONOCYTES % (AUTO) 5.6 %; NEUTROPHILS # (AUTO) 7.8 10^3/uL (1.5-6.6); NEUTROPHILS % (AUTO) 84.9 %; PLT - PLATELET COUNT 278 10^3/uL (130-450); RED BLOOD COUNT 5.06 10^6/uL (4.70-6.10); RED CELL DISTRIBUTION WIDTH 12.1 % (12.0-15.0); WHITE BLOOD COUNT 9.2 x10^3/uL (4.8-10.8)
[2019-05-06 05:00] LABS: INR 3.8 (0.8-1.2); PT - PROTHROMBIN TIME 42.2 secs (9.9-12.6)
[2019-05-06 05:07] LABS: CALCIUM 9.5 mg/dL (8.5-10.3); CREATININE 0.6 mg/dL (0.6-1.2); MAGNESIUM 1.9 mg/dL (1.7-2.8)
[2019-05-06 05:11] LABS: CHOL/HDL RATIO 2.6 (<5.0); CHOLESTEROL 119 mg/dL; HDL CHOLESTEROL 46 mg/dL
[2019-05-06 05:25] LABS: HB2 TOTAL 15.4 g/dL; HEMOGLOBIN A1C 0.56 g/dL; HEMOGLOBIN A1C % 5.5 % (4.6-6.2)
[2019-05-06 05:37] LABS: FOLATE 22.46 ng/mL (5.90 - >24.8)
[2019-05-06] MEDS: METOPROLOL SUCCINATE 50 MG TABLET PO SCH (08:11)
[2019-05-06] MEDS ORDERED: LISINOPRIL 20 MG TABLET PO SCH (09:00)
[2019-05-06] MEDS ORDERED: amLODIPine 5 MG TABLET PO SCH (09:00)
--- NOTE | 2019-05-06 11:27 | MRI Report ---
Reason: Total global amnesia. Procedure Date: 05/06/2019 Accession Number: [id number] / [id number] Procedure: MRI - Brain W/O CPT Code: FULL RESULT: EXAM: MRI BRAIN WITHOUT CONTRAST EXAM DATE: 05/06/2019 11:10 AM. CLINICAL HISTORY: 68-year-old male. Total global amnesia. COMPARISON: HEAD W/O 05/05/2019 6:22 PM. TECHNIQUE: Multiplanar, multisequence T1-weighted and fluid-sensitive MR sequences of the brain were performed. Sequences optimized for routine evaluation. Other: None. IV Contrast: None. FINDINGS: Brain Volume: Normal for age. Parenchyma/Dura: No mass, acute infarct or hemorrhage. Scattered T2/FLAIR hyperintense periventricular, deep, and subcortical white matter lesions within cerebral hemispheres bilaterally. Chronic lacunar infarct right basal ganglia. Punctate foci of susceptibility artifact right cerebellar hemisphere, left parietal operculum. Ventricles/Cisterns: No hydrocephalus. No abnormal extra-axial fluid collection or hemorrhage. Orbits: Symmetric and unremarkable. Sella [place]: The pituitary gland, cavernous sinuses, suprasellar cistern and optic chiasm are unremarkable. IAC: Symmetric and unremarkable. Vasculature: Normal signal flow void is seen in the major arterial structures at the skull base. Sinuses: Mucus retention cyst/polyp left maxillary sinus. No evidence of acute sinusitis. Bones: No focal pathologic appearing marrow signal changes. Other: None. IMPRESSION: 1. No MRI evidence of acute intracranial abnormality. Specifically, no evidence of acute or subacute infarct, acute intracranial hemorrhage, mass, midline shift, or hydrocephalus. 2. Scattered T2/FLAIR hyperintense periventricular, deep, and subcortical white matter lesions within cerebral hemispheres bilaterally. While nonspecific, these are favored to represent sequela of chronic microangiopathy. 3. Chronic lacunar infarct right basal ganglia. 4. Punctate foci of susceptibility artifact right cerebellar hemisphere, left parietal operculum. These likely represent chronic microhemorrhages, possibly hypertensive. RADIA
[2019-05-06 11:30] VITALS: BP 141/84
--- NOTE | 2019-05-06 13:57 | Discharge Plan ---
Discharge Plan Problem Reviewed?: Yes Disposition: Home, Self Care Condition: Stable Diet: Regular Activity Restrictions: Activity as Tolerated Shower Restrictions: No (fall precaution) Instruction Topics: Stroke Sx Health Concerns: transient global amnesia Plan of Treatment: Your CT and MRI of brain test were unremarkable on acute findings. Your memory seems return back. You may begin from tomorrow to take your Coumadin as your schedule, and followup your PCP in one week, and check PT/INR Care Goals: stabilization and improvement of your medical conditions. Assessment: CT and MRI of your brain were unremarkable Additional Instructions or Follow Up instructions: you may followup your PCP in one week and check the PT/INR, and may followup neurologist as out-pt as needed. Should your symptoms return or worsen, you may present ER, call 911 for help. No Smoking: If you smoke, Please STOP! Call for help. Follow-up with: Jamshid Gill MD [Primary Care Provider] -
--- NOTE | 2019-05-06 14:28 | DISCHARGE SUMMARY ---
Discharge Summary Discharge Date: 05/06/19 Discharging Provider: JORGENSEN Primary Care Provider: Dr. Gill Condition at Discharge: Stable Discharge Disposition: 01 Home, Self Care Discharge Facility Name: home - DIAGNOSES Admission Diagnoses: (1) Transient global amnesia (2) Hypertension (3) History of CVA (cerebrovascular accident) without residual deficits (4) History of mechanical aortic valve replacement (5) Atrial fibrillation Discharge Diagnoses with Status of Each Condition: 1) Transient global amnesia resolved (2) Hypertension stable (3) History of CVA (cerebrovascular accident) without residual deficits stable (4) History of mechanical aortic valve replacement stable (5) Atrial fibrillation stable - HPI History of Present Illness: refer from Dr. Mendoza's HPI on 05/05/19 This is a 68 year old male with a past medical history significant for mechanical aortic valve, and hypertension who presents from home after he had an episode of forgetfulness today. He states that he dropped his brother in law off in [place], [place] and that he was given $10 by said person for gas. The patient could not recall dropping off his brother in law. He remembers going to the gas station but he forgot he received $10 for gas. He attempted to use his KATELYN card but he could not remember his PIN. He then drove home to his sister who had received a call from her that he felt the patient was a little off this morning. The patient could not clarify what his brother in law meant by "off". This had all occurred around noon. He called his primary care doctor to make an appointment but one was not available until the following day. A nurse then called him back recommending to go to the emergency department for further evaluation. The patient reports he has never had a similar episode before. He reports no headache, blurry vision, weakness, numbness or slurred speech. He r eports no alcohol or drug use except for marijuana which he uses almost daily. He reports no recent sick contacts and that he was in his usual state of health. He reports no history of seizures. He currently reports feeling back to his baseline. In the ER, he was found to afebrile but hypertensive with systolic's in the 170's. Labs were unremarkable except for an INR of 3.7. A CT of the head was completed which showed no acute process but did reveal an old right lacunar infarction. The patient will be admitted under observation for further monitoring and workup. - HOSPITAL COURSE Hospital Course: pt was admitted for transient global amnesia. after evaluation in hospital, his memory return his baseline. pt told me what happened in detail, pt reported he remember the PIN number now. Pt's CT and MRI of brain both were unremarkable. Pt was advised to followup PCP and out-pt neurologist to for further evaluation if needed. the detail hospital course is as the below. (1) Transient global amnesia resolved. CT and MRI of brain both were unremarkable. (2) Hypertension stable. resume home regimen, followup PCP (3) History of CVA (cerebrovascular accident) without residual deficits stable (4) History of mechanical aortic valve replacement stable. start Coumdin on tomorrow as pt's home schedule, followup PCP in one week to recheck PT/INR (5) Atrial fibrillation stable. start Coumdin on tomorrow as pt's home schedule, followup PCP in one week to recheck PT/INR - ALLERGIES Allergies/Adverse Reactions: Allergies Allergy/AdvReac Type Severity Reaction Status Date / Time No Known Drug Allergies Allergy Verified 05/05/19 17:52 - MEDICATIONS Home Medications: Ambulatory Orders Medication Instructions Recorded Confirmed Warfarin Sodium [Jantoven] 2.5 mg PO SUTUTHSA 04/25/14 05/06/19 Lisinopril 20 mg PO BID 05/06/19 05/06/19 Metoprolol Tartrate 50 mg PO BID 05/06/19 05/06/19 Warfarin [Coumadin] 1.25 mg PO MOWEFR 05/06/19 05/06/19 - PHYSICAL EXAM AT DISCHARGE General Appearance: positive: No acute distress, Alert. negative: Lethargic Eyes Bilateral: positive: Normal inspection, PERRL, No lid inflammation, Conjunctivae nml ENT: positive: ENT inspection nml, Pharynx nml, No signs of dehydration. negative: Purulent nasal drainage, Pharyngeal erythema, Oral lesions Neck: positive: Nml inspection, Thyroid nml, No JVD, Trachea midline. negative: Thyromegaly, Lymphadenopathy (R), Lymphadenopathy (L), Stiff neck, Swelling/bruising, Tracheal deviation Respiratory: positive: Chest non-tender, No respiratory distress, Breath sounds nml. negative: Wheezes, Rales, Rhonchi Cardiovascular: positive: Regular rate & rhythm, No murmur, No gallop. negative: Irregularly irregular, Extrasystoles, Tachycardia, Bradycardia, JVD present, Systolic murmur, Diastolic murmur Peripheral Pulses: positive: 2+ Abdomen: positive: Non-tender, No organomegaly, Nml bowel sounds, No distention. negative: Tenderness, Guarding, Rebound Back: positive: Nml inspection. negative: CVA tenderness (R), CVA tenderness (L) Skin: positive: Color nml, No rash, Warm, Dry. negative: Cyanosis, Diaphoresis, Pallor Extremities: positive: Non-tender, Full ROM, Nml appearance. negative: Calf tenderness, Joint swelling, Delmi's sign/cords Neurologic/Psychiatric: positive: Oriented x3, Motor nml, Sensation nml, Mood/a ffect nml. negative: Weakness, Sensory loss, Facial droop, Slurred/abnml speech, Depressed mood/affect - LABS Result Diagrams: 05/06/19 04:25 05/06/19 04:25 - FOLLOW UP Follow Up: Your CT and MRI of brain test were unremarkable on acute findings. Your memory seems return back. You may begin from tomorrow to take your Coumadin as your schedule, and followup your PCP in one week, and check PT/INR. you may followup your PCP in one week and check the PT/INR, and may followup neurologist as out-pt as needed. Should your symptoms return or worsen, you may present ER, call 911 for help. - TIME SPENT Time Spent in Discharge (Minutes): 50
[2019-05-06] MEDS ORDERED: ATORVASTATIN 40 MG TABLET PO SCH (21:00)
== END 2019-05-06 15:21 | disposition home or self-care (01) ==
LOC: ED 17:44 → MS2 19:52
PROVIDERS: ADMIT Internal Medicine; ATTEND Nurse Practitioner Gerontology
DX: G45.4 Transient global amnesia (principal); R40.2412 Glasgow coma scale score 13-15, at arrival to emergency department; I48.91 Unspecified atrial fibrillation; I10 Essential (primary) hypertension; Z86.73 Personal history of transient ischemic attack (TIA), and cerebral infarction without residual deficits; Z95.2 Presence of prosthetic heart valve; Z79.01 Long term (current) use of anticoagulants; Z79.899 Other long term (current) drug therapy; Z82.49 Family history of ischemic heart disease and other diseases of the circulatory system
CPT/HCPCS: 36415; 70450; 70551; 80048; 80053; 80061; 81001; 82607; 82746; 83036; 83690; 83735; 84100; 84443; 85025; 85610; 93005; 96365; 99285; A9270; G0378; J3411; J7040; 80306; 83721

== ENCOUNTER 2019-05-20 13:22 | Outpatient (CLI) | payer MEDICARE, MEDICAID | END 2019-05-20 13:23 | disposition home or self-care (01) | LOC: LAB.S 13:22 | PROVIDERS: ATTEND Internal Medicine | DX: I48.2 Chronic atrial fibrillation (principal) | CPT/HCPCS: 85610 ==

== ENCOUNTER 2019-05-27 12:55 | Outpatient (CLI) | payer MEDICARE, MEDICAID | END 2019-05-27 12:56 | disposition home or self-care (01) | LOC: LAB.S 12:55 | PROVIDERS: ATTEND Internal Medicine | DX: I48.2 Chronic atrial fibrillation (principal) | CPT/HCPCS: 85610 ==

== ENCOUNTER 2019-06-30 11:28 | Outpatient (CLI) | payer MEDICARE, MEDICAID | END 2019-06-30 11:29 | disposition home or self-care (01) | LOC: LAB.S 11:28 | PROVIDERS: ATTEND Internal Medicine | DX: I48.20 Chronic atrial fibrillation, unspecified (principal); Z79.01 Long term (current) use of anticoagulants | CPT/HCPCS: 85610 ==

== ENCOUNTER 2019-07-28 10:59 | Emergency (ER) | payer MEDICARE, MEDICAID ==
--- NOTE | 2019-07-28 12:42 | ED Physician Documentation ---
History of Present Illness - Stated complaint Stated Complaint: SHOULDER PX - Chief complaint Chief Complaint: Ext Problem - Additonal information Additional information: This is a 68-year-old male with a history of replacement on anticoagulation, who presents with 2 complaints. The first is that he has some right shoulder pain. He states that he has had a inflammation of his shoulder similar to this in the past, usually begins in the absence of known trauma and causes some pain limitation in his right shoulder for several days to week, and this gradually improves. His most recent episode of shoulder pain began the last several days, and is been worsening. He is able to move his shoulder but he has pain if he abducts beyond 90 degrees. He denies any redness or swelling in the shoulder, no weakness or numbness in the arm. No other joint involvement. The pain is only present when he lays on it or presses on the shoulder or moves in a certain way, particularly with overhead activity. He denies any radiation towards his chest or neck.No chest pain. No shortness of breath. Patient secondary complaint is that he has been getting over a cough and runny nose, and when he lays down at night he does have some mild continued cough as well as a feeling of chest congestion. He denies shortness of breath or chest pain. No hemoptysis. No fever. Review of Systems Constitutional: denies: Fever Cardiac: denies: Chest pain / pressure Respiratory: reports: Cough. denies: Dyspnea GI: denies: Abdominal Pain : denies: Dysuria Musculoskeletal: reports: Extremity pain Neurologic: denies: Generalized weakness PD PAST MEDICAL HISTORY - Past Medical History Past Medical History: Yes Cardiovascular: Hypertension, Valve disorder Respiratory: None Neuro: CVA Endocrine/Autoimmune: None GI: None : None Psych: None Musculoskeletal: None Derm: None - Past Surgical History Past Surgical History: Yes Cardiovascular: Valve replacement HEENT: Tonsil/Adenoidectomy - Present Medications Home Medications: Ambulatory Orders Medication Instructions Recorded Confirmed Warfarin Sodium [Jantoven] 2.5 mg PO SUTUTHSA 04/25/14 05/06/19 Lisinopril 20 mg PO BID 05/06/19 05/06/19 Metoprolol Tartrate 50 mg PO BID 05/06/19 05/06/19 Warfarin [Coumadin] 1.25 mg PO MOWEFR 05/06/19 05/06/19 Cyclobenzaprine [Flexeril] 10 mg PO TID PRN #20 tablet 07/28/19 - Allergies Allergies/Adverse Reactions: Allergies Allergy/AdvReac Type Severity Reaction Status Date / Time No Known Drug Allergies Allergy Verified 07/28/19 11:15 - Social History Does the pt smoke?: No Smoking Status: Never smoker Does the pt drink ETOH?: No Does the pt have substance abuse?: Yes - Immunizations Immunizations are current?: Yes - POLST Patient has POLST: No PD ED PE NORMAL - Vitals Vital signs reviewed: Yes - General General: Alert and oriented X 3 - HEENT HEENT: Atraumatic - Neck Neck: Supple, no meningeal sign - Cardiac Cardiac: RRR, Other (Loud S2) - Respiratory Respiratory: No respiratory distress, Clear bilaterally - Abdomen Abdomen: Non distended - Extremities Extremities: Other (Shoulders are symmetric in appearance, there is no deformity right shoulder. Patient does have full active range of motion abduction past 90 degrees causes some pain. He has tenderness in the subacromial area of the right shoulder, and to a lesser extent in the deltoid. Full 5 out of 5 strength with hand squeeze finger abduction elbow flexion and extension. Sensation intact light touch over radial, median, and ulnar nerve distributions. Capillary refill is brisk.) Results - Vitals Vitals: Vital Signs - 24 hr 07/28/19 11:15 Temperature 36.6 C Heart Rate 72 Respiratory 15 Rate Blood Pressure 176/96 H O2 Saturation 97 Oxygen O2 Source Room air - Rads (name of study) Chest XR Radiology: Other (No acute cardiopulmonary abnormality.) PD MEDICAL DECISION MAKING - ED course Complexity details: considered differential (Bursitis, impingement, rotator cuff damage, strain, sprain, pneumonia, viral syndrome, post viral cough) ED course: Patient is well-appearing on exam, he does have full range motion of his shoulder though acitvity above the head causes pain and he has tenderness in the subacromial bursa. He has a positive Neer's test and I think he likely does have a subacromial impingement, especially given his history of similar symptoms in the past. We discussed this diagnosis and supportive care, he cannot take nonsteroidal anti-inflammatories so we will try some Flexeril along with Tylenol and rest, ice. Also recommended that he needs to follow-up with his primary care provider and with sports medicine if he is having continued issues. I discussed return precautions including signs of infection, worsening pain, fever. This is clearly musculoskeletal pain, no history to suggest ACS or radiculopathy. Given his somewhat persistent cough chest x-ray was obtained which shows no signs of pneumonia or allergy. He is very well-appearing and I think he likely has a mild post viral cough. I discussed supportive care and return precautions for this. Patient agreed and was discharged home Departure - Departure Disposition: , Self Care Clinical Impression: Shoulder pain Condition: Good Instructions: Impingement Shoulder Tx Options Follow-Up: Jamshid Gill MD [Primary Care Provider] - Within 1 week Prescriptions: Cyclobenzaprine [Flexeril] 10 mg PO TID PRN #20 tablet PRN Reason: Spasms Comments: It appears you have some subacromial impingement on your shoulder, which is usually caused by inflammation of the muscles and bursa/fluid-filled sacs around the shoulder. Rest the shoulder avoid repetitive motion, you may take Tylenol and try the Flexeril, you may also ice the shoulder. You should follow-up with your primary care provider and you may need to see a sports medicine doctor/orthopedist as well if this problem continues. If you develop fever, weakness, or other concerning symptoms return to the emergency department. I think your cough is related to recent viral illness, if it persist or you are developing trouble breathing or chest pain return to the emergency department.
--- NOTE | 2019-07-28 13:31 | XRAY Report ---
Reason: cough Procedure Date: 07/28/2019 Accession Number: [id number] / [id number] Procedure: XR - Chest 2 View X-Ray CPT Code: 07849 Final Report FULL RESULT: EXAM: CHEST RADIOGRAPHY EXAM DATE: 07/28/2019 01:08 PM. CLINICAL HISTORY: Cough. COMPARISON: CHEST 2 VIEW 11/19/2017 12:21 PM. TECHNIQUE: 2 views. FINDINGS: Lungs/Pleura: No focal opacities evident. No pleural effusion. No pneumothorax. Normal volumes. Mediastinum: Heart size is normal. Prior median sternotomy and aortic valve replacement noted. Trachea is midline. Other: None. IMPRESSION: Negative for an acute cardiopulmonary abnormality. RADIA
[2019-07-28 14:09] VITALS: BP 160/90
== END 2019-07-28 14:08 | disposition home or self-care (01) ==
LOC: ED 10:59
DX: M25.511 Pain in right shoulder (principal); R05 Cough; I10 Essential (primary) hypertension; Z79.01 Long term (current) use of anticoagulants; Z95.2 Presence of prosthetic heart valve
CPT/HCPCS: 71046; 99283; 99284

== ENCOUNTER 2019-08-10 09:36 | Outpatient (CLI) | payer MEDICARE, MEDICAID | END 2019-08-10 09:37 | disposition home or self-care (01) | LOC: LAB.S 09:36 | PROVIDERS: ATTEND Internal Medicine | DX: I48.20 Chronic atrial fibrillation, unspecified (principal); Z79.01 Long term (current) use of anticoagulants | CPT/HCPCS: 85610 ==

== ENCOUNTER 2019-09-29 09:36 | Outpatient (CLI) | payer MEDICARE, MEDICAID | END 2019-09-29 09:37 | disposition home or self-care (01) | LOC: LAB.S 09:36 | PROVIDERS: ATTEND Internal Medicine | DX: Z79.01 Long term (current) use of anticoagulants (principal); I48.20 Chronic atrial fibrillation, unspecified | CPT/HCPCS: 85610 ==

== ENCOUNTER 2019-10-06 09:38 | Outpatient (CLI) | payer MEDICARE, MEDICAID | END 2019-10-06 09:39 | disposition home or self-care (01) | LOC: LAB.S 09:38 | PROVIDERS: ATTEND Internal Medicine | DX: I48.20 Chronic atrial fibrillation, unspecified (principal); Z79.01 Long term (current) use of anticoagulants | CPT/HCPCS: 85610 ==

== ENCOUNTER 2019-11-08 09:38 | Outpatient (CLI) | payer MEDICARE, MEDICAID | END 2019-11-08 09:39 | disposition home or self-care (01) | LOC: LAB.S 09:38 | PROVIDERS: ATTEND Internal Medicine | DX: I48.20 Chronic atrial fibrillation, unspecified (principal); Z79.01 Long term (current) use of anticoagulants | CPT/HCPCS: 85610 ==

== ENCOUNTER 2019-12-01 09:44 | Outpatient (CLI) | payer MEDICARE, MEDICAID | END 2019-12-01 09:45 | disposition home or self-care (01) | LOC: LAB.S 09:44 | PROVIDERS: ATTEND Internal Medicine | DX: I48.20 Chronic atrial fibrillation, unspecified (principal); Z79.01 Long term (current) use of anticoagulants | CPT/HCPCS: 85610 ==

== ENCOUNTER 2020-01-03 08:00 | Outpatient (CLI) | payer MEDICARE, MEDICAID | END 2020-01-03 23:59 | disposition home or self-care (01) | LOC: LAB.WCP 08:00 | PROVIDERS: ATTEND Internal Medicine | DX: I48.91 Unspecified atrial fibrillation (principal); Z95.2 Presence of prosthetic heart valve ==

== ENCOUNTER 2020-02-17 15:01 | Outpatient (CLI) | payer MEDICARE, MEDICAID ==
--- NOTE | 2020-02-17 15:48 | XRAY Report ---
Reason: NECK PAIN Procedure Date: 02/17/2020 Accession Number: [id number] / [id number] Procedure: WCP - Cervical Spine 2 View CPT Code: Final Report FULL RESULT: PROCEDURE: Cervical Spine 2 View INDICATIONS: NECK PAIN TECHNIQUE: 2 view(s) of the cervical spine were acquired. COMPARISON: None. FINDINGS: Bones: No fractures or dislocations to the C7 level. Odontoid view not obtained. Disc space narrowing and endplate osteophyte formation, worst at C5-C6 and C6-C7 are present, indicating degenerative disc disease. Facet hypertrophy throughout the mid and lower cervical spine is present. No suspicious bony lesions. Soft tissues: No prevertebral soft tissue swelling. IMPRESSION: Multilevel degenerative disc and facet disease. No acute fracture. No osseous lesion. If symptoms and/or clinical suspicion for pathology continue, further assessment with repeat plain films, or advanced imaging (e.g., CT, MRI, or bone scan) is recommended for further assessment. Reviewed by: Nick Cunningham MD on 02/17/2020 3:47 PM PDT Approved by: Nick Cunningham MD on 02/17/2020 3:47 PM PDT Station ID: [id number]
== END 2020-02-17 23:59 | disposition home or self-care (01) ==
LOC: DI.WCP 15:01
PROVIDERS: ATTEND Family Medicine
DX: M47.812 Spondylosis without myelopathy or radiculopathy, cervical region (principal); M50.322 Other cervical disc degeneration at C5-C6 level
CPT/HCPCS: 72040

== ENCOUNTER 2020-03-03 08:00 | Outpatient (CLI) | payer MEDICARE, MEDICAID | END 2020-03-03 08:01 | disposition home or self-care (01) | LOC: LAB.S 08:00 | PROVIDERS: ATTEND Internal Medicine | DX: I48.20 Chronic atrial fibrillation, unspecified (principal); Z79.01 Long term (current) use of anticoagulants | CPT/HCPCS: 85610 ==

== ENCOUNTER 2020-03-09 07:55 | Outpatient (CLI) | payer MEDICARE, MEDICAID | END 2020-03-09 07:56 | disposition home or self-care (01) | LOC: LAB.S 07:55 | PROVIDERS: ATTEND Internal Medicine | DX: I48.20 Chronic atrial fibrillation, unspecified (principal); Z79.01 Long term (current) use of anticoagulants | CPT/HCPCS: 85610 ==

== ENCOUNTER 2020-03-27 07:28 | Outpatient (CLI) | payer MEDICARE, MEDICAID | END 2020-03-27 07:29 | disposition home or self-care (01) | LOC: LAB.S 07:28 | PROVIDERS: ATTEND Internal Medicine | DX: I48.20 Chronic atrial fibrillation, unspecified (principal); Z79.01 Long term (current) use of anticoagulants | CPT/HCPCS: 85610 ==

== ENCOUNTER 2020-04-25 11:48 | Outpatient (CLI) | payer MEDICARE, MEDICAID | END 2020-04-25 11:49 | disposition home or self-care (01) | LOC: LAB.S 11:48 | PROVIDERS: ATTEND Internal Medicine | DX: I48.20 Chronic atrial fibrillation, unspecified (principal); Z79.01 Long term (current) use of anticoagulants | CPT/HCPCS: 85610 ==

== ENCOUNTER 2020-05-08 11:48 | Outpatient (CLI) | payer MEDICARE, MEDICAID | END 2020-05-08 11:49 | disposition home or self-care (01) | LOC: LAB.S 11:48 | PROVIDERS: ATTEND Internal Medicine | DX: I48.20 Chronic atrial fibrillation, unspecified (principal); Z79.01 Long term (current) use of anticoagulants | CPT/HCPCS: 85610 ==

== ENCOUNTER 2020-05-10 10:39 | Outpatient (CLI) | payer MEDICARE, MEDICAID | END 2020-05-10 10:40 | disposition home or self-care (01) | LOC: LAB.S 10:39 | PROVIDERS: ATTEND Internal Medicine | DX: I48.20 Chronic atrial fibrillation, unspecified (principal); Z79.01 Long term (current) use of anticoagulants | CPT/HCPCS: 85610 ==

== ENCOUNTER 2020-05-18 10:35 | Outpatient (CLI) | payer MEDICARE, MEDICAID | END 2020-05-18 10:36 | disposition home or self-care (01) | LOC: LAB.S 10:35 | PROVIDERS: ATTEND Internal Medicine | DX: I48.20 Chronic atrial fibrillation, unspecified (principal); Z79.01 Long term (current) use of anticoagulants | CPT/HCPCS: 85610 ==

== ENCOUNTER 2020-05-25 10:34 | Outpatient (CLI) | payer MEDICARE, MEDICAID | END 2020-05-25 10:35 | disposition home or self-care (01) | LOC: LAB.S 10:34 | PROVIDERS: ATTEND Internal Medicine | DX: I48.20 Chronic atrial fibrillation, unspecified (principal); Z79.01 Long term (current) use of anticoagulants | CPT/HCPCS: 85610 ==

== ENCOUNTER 2020-06-02 10:54 | Outpatient (CLI) | payer MEDICARE, MEDICAID | END 2020-06-02 10:55 | disposition home or self-care (01) | LOC: LAB.S 10:54 | PROVIDERS: ATTEND Internal Medicine | DX: I48.20 Chronic atrial fibrillation, unspecified (principal); Z79.01 Long term (current) use of anticoagulants | CPT/HCPCS: 85610 ==

== ENCOUNTER 2020-06-09 10:42 | Outpatient (CLI) | payer MEDICARE, MEDICAID | END 2020-06-09 10:43 | disposition home or self-care (01) | LOC: LAB.S 10:42 | PROVIDERS: ATTEND Internal Medicine | DX: I48.20 Chronic atrial fibrillation, unspecified (principal); Z79.01 Long term (current) use of anticoagulants | CPT/HCPCS: 85610 ==

== ENCOUNTER 2020-06-23 12:46 | Outpatient (CLI) | payer MEDICARE, MEDICAID | END 2020-06-23 12:47 | disposition home or self-care (01) | LOC: LAB.S 12:46 | PROVIDERS: ATTEND Internal Medicine | DX: I48.20 Chronic atrial fibrillation, unspecified (principal); Z79.01 Long term (current) use of anticoagulants | CPT/HCPCS: 85610 ==

== ENCOUNTER 2020-07-24 11:49 | Outpatient (CLI) | payer MEDICARE, MEDICAID | END 2020-07-24 11:50 | disposition home or self-care (01) | LOC: LAB.S 11:49 | PROVIDERS: ATTEND Internal Medicine | DX: I48.91 Unspecified atrial fibrillation (principal); Z79.01 Long term (current) use of anticoagulants | CPT/HCPCS: 85610 ==

== ENCOUNTER 2020-08-02 10:45 | Outpatient (CLI) | payer MEDICARE, MEDICAID | END 2020-08-02 10:46 | disposition home or self-care (01) | LOC: LAB.S 10:45 | PROVIDERS: ATTEND Internal Medicine | DX: Z79.01 Long term (current) use of anticoagulants (principal) | CPT/HCPCS: 85610 ==

== ENCOUNTER 2020-08-09 11:54 | Outpatient (CLI) | payer MEDICARE, MEDICAID | END 2020-08-09 11:55 | disposition home or self-care (01) | LOC: LAB.S 11:54 | PROVIDERS: ATTEND Internal Medicine | DX: Z79.01 Long term (current) use of anticoagulants (principal) | CPT/HCPCS: 85610 ==

== ENCOUNTER 2020-08-23 10:42 | Outpatient (CLI) | payer MEDICARE, MEDICAID | END 2020-08-23 10:43 | disposition home or self-care (01) | LOC: LAB.S 10:42 | PROVIDERS: ATTEND Internal Medicine | DX: Z79.01 Long term (current) use of anticoagulants (principal) | CPT/HCPCS: 85610 ==

== ENCOUNTER 2020-09-06 14:05 | Outpatient (CLI) | payer MEDICARE, MEDICAID | END 2020-09-06 14:06 | disposition home or self-care (01) | LOC: LAB.S 14:05 | PROVIDERS: ATTEND Internal Medicine | DX: Z79.01 Long term (current) use of anticoagulants (principal) | CPT/HCPCS: 85610 ==

== ENCOUNTER 2020-09-14 14:11 | Outpatient (CLI) | payer MEDICARE, MEDICAID | END 2020-09-14 14:12 | disposition home or self-care (01) | LOC: LAB.S 14:11 | PROVIDERS: ATTEND Internal Medicine | DX: Z79.01 Long term (current) use of anticoagulants (principal) | CPT/HCPCS: 85610 ==

== ENCOUNTER 2020-09-26 08:00 | Outpatient (CLI) | payer MEDICARE, MEDICAID | END 2020-09-26 23:59 | disposition home or self-care (01) | LOC: LAB.F 08:00 | PROVIDERS: ATTEND Internal Medicine | DX: Z79.01 Long term (current) use of anticoagulants (principal) ==

== ENCOUNTER 2020-11-01 10:38 | Outpatient (CLI) | payer MEDICARE, MEDICAID | END 2020-11-01 10:39 | disposition home or self-care (01) | LOC: LAB.S 10:38 | PROVIDERS: ATTEND Internal Medicine | DX: Z79.01 Long term (current) use of anticoagulants (principal) | CPT/HCPCS: 85610 ==

== ENCOUNTER 2020-12-04 11:46 | Outpatient (CLI) | payer MEDICARE, MEDICAID | END 2020-12-04 11:47 | disposition home or self-care (01) | LOC: LAB.S 11:46 | PROVIDERS: ATTEND Internal Medicine | DX: Z79.01 Long term (current) use of anticoagulants (principal) | CPT/HCPCS: 85610 ==

== ENCOUNTER 2021-01-02 13:00 | Outpatient (CLI) | payer MEDICARE, MEDICAID | END 2021-01-02 13:01 | disposition home or self-care (01) | LOC: LAB.S 13:00 | PROVIDERS: ATTEND Internal Medicine | DX: Z79.01 Long term (current) use of anticoagulants (principal) | CPT/HCPCS: 85610 ==

== ENCOUNTER 2021-01-24 09:05 | Outpatient (CLI) | payer MEDICARE, MEDICAID | END 2021-01-24 09:06 | disposition home or self-care (01) | LOC: LAB.S 09:05 | PROVIDERS: ATTEND Internal Medicine | DX: Z79.01 Long term (current) use of anticoagulants (principal) | CPT/HCPCS: 36416; 85610 ==

== ENCOUNTER 2021-02-27 09:06 | Outpatient (CLI) | payer MEDICARE, MEDICAID | END 2021-02-27 09:07 | disposition home or self-care (01) | LOC: LAB.S 09:06 | PROVIDERS: ATTEND Internal Medicine | DX: Z79.01 Long term (current) use of anticoagulants (principal) | CPT/HCPCS: 36416; 85610 ==

== ENCOUNTER 2021-04-05 09:06 | Outpatient (CLI) | payer MEDICARE, MEDICAID | END 2021-04-05 09:07 | disposition home or self-care (01) | LOC: LAB.S 09:06 | PROVIDERS: ATTEND Internal Medicine | DX: Z79.01 Long term (current) use of anticoagulants (principal) | CPT/HCPCS: 36416; 85610 ==

== ENCOUNTER 2021-06-18 09:06 | Outpatient (CLI) | payer MEDICARE, MEDICAID | END 2021-06-18 09:07 | disposition home or self-care (01) | LOC: LAB.S 09:06 | PROVIDERS: ATTEND Internal Medicine | DX: Z79.01 Long term (current) use of anticoagulants (principal) | CPT/HCPCS: 36416; 85610 ==

== ENCOUNTER 2021-08-29 09:06 | Outpatient (CLI) | payer MEDICARE, MEDICAID | END 2021-08-29 09:07 | disposition home or self-care (01) | LOC: LAB.S 09:06 | PROVIDERS: ATTEND Internal Medicine | DX: Z79.01 Long term (current) use of anticoagulants (principal) | CPT/HCPCS: 36416; 85610 ==

== ENCOUNTER 2021-10-08 09:09 | Outpatient (CLI) | payer MEDICARE, MEDICAID | END 2021-10-08 09:10 | disposition home or self-care (01) | LOC: LAB.S 09:09 | PROVIDERS: ATTEND Internal Medicine | DX: Z79.01 Long term (current) use of anticoagulants (principal) | CPT/HCPCS: 36416; 85610 ==

== ENCOUNTER 2021-11-05 09:06 | Outpatient (CLI) | payer MEDICARE, MEDICAID | END 2021-11-05 09:07 | disposition home or self-care (01) | LOC: LAB.S 09:06 | PROVIDERS: ATTEND Internal Medicine | DX: Z79.01 Long term (current) use of anticoagulants (principal) | CPT/HCPCS: 36416; 85610 ==

== ENCOUNTER 2021-11-09 09:05 | Outpatient (CLI) | payer MEDICARE, MEDICAID ==
[2021-11-09 15:19] LABS: BASOPHILS # (AUTO) 0.1 10^3/uL (0.0-0.1); BASOPHILS % (AUTO) 0.8 %; EOSINOPHILS # (AUTO) 0.2 10^3/uL (0.0-0.7); EOSINOPHILS % (AUTO) 2.6 %; HCT - HEMATOCRIT 48.3 % (42.0-52.0); HGB - HEMOGLOBIN 15.7 g/dL (14.0-18.0); LYMPHOCYTES # (AUTO) 1.8 10^3/uL (1.5-3.5); MEAN CORPUSCULAR HEMOGLOBIN 29.2 pg (27.0-31.0); MEAN CORPUSCULAR HGB CONC 32.5 g/dL (32.0-36.0); MEAN CORPUSCULAR VOLUME 89.8 fL (80.0-94.0); MEAN PLATELET VOLUME 11.2 fL (7.4-11.4); MONOCYTES # (AUTO) 0.8 10^3/uL (0.0-1.0); MONOCYTES % (AUTO) 9.3 %; NEUTROPHILS # (AUTO) 5.5 10^3/uL (1.5-6.6); NEUTROPHILS % (AUTO) 65.9 %; PLT - PLATELET COUNT 248 10^3/uL (130-450); RED BLOOD COUNT 5.38 10^6/uL (4.70-6.10); RED CELL DISTRIBUTION WIDTH 14.8 % (12.0-15.0); WHITE BLOOD COUNT 8.4 x10^3/uL (4.8-10.8)
[2021-11-09 16:08] LABS: ALBUMIN/GLOBULIN RATIO 1.2 (1.0-2.2); ALKALINE PHOSPHATASE 87 IU/L (42-121); ALT ALANINE AMINOTRANSFERASE 27 IU/L (10-60); AST ASPARTATE AMINOTRANSFERASE 32 IU/L (10-42); BUN - BLOOD UREA NITROGEN 14 mg/dL (6-20); CALCIUM 9.2 mg/dL (8.5-10.3); CARBON DIOXIDE - CO2 26 mmol/L (21-32); CHLORIDE 102 mmol/L (101-111); CHOLESTEROL 152 mg/dL; CREATININE 0.7 mg/dL (0.6-1.2); GFR - MDRD 111 (>89); GLUCOSE 107 mg/dL (70-100); HDL CHOLESTEROL 51 mg/dL; LDL CHOLESTEROL,CALCULATED 91 mg/dL; LDL/HDL RATIO 1.8 (<3.6); POTASSIUM 4.3 mmol/L (3.5-5.0); SODIUM 136 mmol/L (135-145); TOTAL PROTEIN 7.3 g/dL (6.7-8.2); TRIGLYCERIDES 52 mg/dL; VLDL CHOLESTEROL 10 mg/dL
== END 2021-11-09 09:06 | disposition home or self-care (01) ==
LOC: LAB.S 09:05
PROVIDERS: ATTEND Internal Medicine
DX: I10 Essential (primary) hypertension (principal); I48.91 Unspecified atrial fibrillation; Z13.220 Encounter for screening for lipoid disorders; Z12.5 Encounter for screening for malignant neoplasm of prostate; Z79.01 Long term (current) use of anticoagulants
CPT/HCPCS: 36415; 80053; 80061; 85025; G0103; 83721; 84153

== ENCOUNTER 2021-12-26 10:47 | Outpatient (CLI) | payer MEDICARE, MEDICAID | END 2021-12-26 10:48 | disposition home or self-care (01) | LOC: LAB.S 10:47 | PROVIDERS: ATTEND Internal Medicine | DX: Z79.01 Long term (current) use of anticoagulants (principal) | CPT/HCPCS: 36416; 85610 ==

== ENCOUNTER 2022-01-07 09:07 | Outpatient (CLI) | payer MEDICARE, MEDICAID | END 2022-01-07 09:08 | disposition home or self-care (01) | LOC: LAB.S 09:07 | PROVIDERS: ATTEND Registered Nurse | DX: Z79.01 Long term (current) use of anticoagulants (principal) | CPT/HCPCS: 36416; 85610 ==

== ENCOUNTER 2022-01-21 09:12 | Outpatient (CLI) | payer MEDICARE, MEDICAID | END 2022-01-21 09:13 | disposition home or self-care (01) | LOC: LAB.S 09:12 | PROVIDERS: ATTEND Registered Nurse | DX: Z79.01 Long term (current) use of anticoagulants (principal) | CPT/HCPCS: 36416; 85610 ==

== ENCOUNTER 2022-02-18 13:25 | Outpatient (CLI) | payer MEDICARE, MEDICAID | END 2022-02-18 13:26 | disposition home or self-care (01) | LOC: LAB.S 13:25 | PROVIDERS: ATTEND Registered Nurse | DX: Z79.01 Long term (current) use of anticoagulants (principal) | CPT/HCPCS: 36416; 85610 ==

== ENCOUNTER 2022-03-28 08:01 | Outpatient (CLI) | payer MEDICARE, MEDICAID | END 2022-03-28 08:02 | disposition home or self-care (01) | LOC: LAB.S 08:01 | PROVIDERS: ATTEND Registered Nurse | DX: Z79.01 Long term (current) use of anticoagulants (principal) | CPT/HCPCS: 36416; 85610 ==

== ENCOUNTER 2022-05-06 09:18 | Outpatient (CLI) | payer MEDICARE, MEDICAID | END 2022-05-06 09:19 | disposition home or self-care (01) | LOC: LAB.S 09:18 | PROVIDERS: ATTEND Registered Nurse | DX: Z79.01 Long term (current) use of anticoagulants (principal) | CPT/HCPCS: 36416; 85610 ==

== ENCOUNTER 2022-06-19 09:12 | Outpatient (CLI) | payer MEDICARE, MEDICAID | END 2022-06-19 09:13 | disposition home or self-care (01) | LOC: LAB.S 09:12 | PROVIDERS: ATTEND Registered Nurse | DX: Z79.01 Long term (current) use of anticoagulants (principal) | CPT/HCPCS: 36416; 85610 ==

== ENCOUNTER 2022-06-20 13:04 | Inpatient (IN) | payer MEDICARE, MEDICAID ==
[2022-06-20] MEDS ORDERED: iohexoL-300 100 ML VIAL ONE (13:15)
--- NOTE | 2022-06-20 13:34 | ED Physician Documentation ---
PD HPI FOCAL NEURO - Stated complaint Stated Complaint: STROKE SYMPTOM - Chief complaint Chief Complaint: Neuro - History obtained from History obtained from: Family - Additional information Additional information: This is a 71-year-old gentleman presents by private vehicle accompanied by his neighbor/friend. They last saw him 2 days ago at which time he was normal. Presume he was actually normal yesterday morning as he had his INR checked around 9 AM in the clinic. He has a history of mechanical aortic valve and is on warfarin. He has a history of transient global amnesia in the past. The friend found him walking around the house but there was evidence of blood around the house and it was clear that at some point he had fallen because of wounds on his head and right arm. Patient is unable to give any history because he answers "I do not know" to any question including his name. Review of Systems Unable to obtain: Confused PD PAST MEDICAL HISTORY - Past Medical History Cardiovascular: Hypertension, Valve disorder Respiratory: None Neuro: CVA Endocrine/Autoimmune: None GI: None : None Psych: None Musculoskeletal: None Derm: None - Past Surgical History Past Surgical History: Yes Cardiovascular: Valve replacement HEENT: Tonsil/Adenoidectomy - Present Medications Home Medications: Ambulatory Orders Medication Instructions Recorded Confirmed Warfarin Sodium [Jantoven] 2.5 mg PO SUTUTHSA 04/25/14 05/06/19 Metoprolol Tartrate 50 mg PO BID 05/06/19 05/06/19 Warfarin [Coumadin] 1.25 mg PO MOWEFR 05/06/19 05/06/19 lisinopriL [Lisinopril] 20 mg PO BID 05/06/19 05/06/19 Cyclobenzaprine [Flexeril] 10 mg PO TID PRN #20 tablet 07/28/19 - Allergies Allergies/Adverse Reactions: Allergies Allergy/AdvReac Type Severity Reaction Status Date / Time No Known Drug Allergies Allergy Verified 07/28/19 11:15 - Social History Does the pt smoke?: No Smoking Status: Never smoker Does the pt drink ETOH?: No Does the pt have substance abuse?: Yes - Immunizations Immunizations are current?: Yes - POLST Patient has POLST: No PD ED PE NORMAL - Vitals Vital signs reviewed: Yes - General General: Other (He is alert and follows commands and makes eye contact. For the most part is aphasic but does say "I do not know," and says "damn" when his IV is placed. He does follow simple commands but with difficulty.) - HEENT HEENT: PERRL, EOMI, Other (There is a scrape on the top of the head, And shallow abrasions about the forehead.) - Neck Neck: Supple, no meningeal sign, No bony TTP - Cardiac Cardiac: Other (Irregularly irregular and rapid no murmur) - Respiratory Respiratory: No respiratory distress, Clear bilaterally - Abdomen Abdomen: Normal bowel sounds, Soft, Non tender - Back Back: No CVA TTP, No spinal TTP - Extremities Extremities: No deformity, No tenderness to palpate, Normal ROM s pain, Other (There is bruising about the right olecranon and a skin tear on the medial right forearm) - Neuro Neuro: adoption specialist 2-12 intact Eye Opening: Spontaneous Motor: Obeys Commands Verbal: Inappropriate GCS Score: 13 NIHSS - Time Time: 13:25 - Level of Consciousness Level of consciousness: (0) Alert, Keenly responsive LOC Questions: (2) Answers neither correct LOC Commands: (0) Performs both correctly - Gaze Best Gaze: (0) Normal - Visual Visual: (0) No loss - Facial Palsy Facial Palsy: (0) Normal, symmetrical movement - Motor Arms (both separate) Motor Arm (right): (0) No drift Motor Arm (left): (0) No drift - Motor Legs (both separate) Motor Leg (right): (0) No drift Motor Leg (left): (0) No drift - Limb Ataxia Limb Ataxia: (0) Absent - Sensory Sensory: (0) Normal - Best Language Best Language: (2) Severe aphasia - Dysarthria Dysarthria: (0) Normal - Extinction and Inattention (formally neg Extinction and inattention: (0) No abnormality - Total Score/Results Total Score/Result: 4 Results - Vitals Vitals: Vital Signs - 24 hr 06/20/22 06/20/22 06/20/22 13:06 14:18 15:22 Temperature 36.8 C Heart Rate 127 H 100 101 H Respiratory 20 Rate Blood Pressure 175/93 H 163/78 H 171/97 H O2 Saturation 98 97 99 06/20/22 06/20/22 06/20/22 15:24 15:30 15:35 Temperature Heart Rate 120 H 94 100 Respiratory Rate Blood Pressure 172/98 H 171/97 H 140/82 H O2 Saturation 06/20/22 06/20/22 06/20/22 15:50 16:05 16:20 Temperature Heart Rate 110 H 95 101 H Respiratory 18 18 18 Rate Blood Pressure 148/88 H 145/86 H 179/85 H O2 Saturation 98 97 98 06/20/22 17:22 Temperature Heart Rate 106 H Respiratory 18 Rate Blood Pressure 163/91 H O2 Saturation 99 Oxygen O2 Source Room air - EKG (time done) 1318 Rate: Rate (enter#) (120) Rhythm: Atrial fibrillation [place]: Normal QRS: LVH Ischemia: No: ST elevation c/w ischemia, ST depression - Labs Labs: Laboratory Tests 06/20/22 06/20/22 06/20/22 13:27 13:30 13:30 WBC 18.8 H RBC 5.34 Hgb 15.6 Hct 47.2 MCV 88.4 MCH 29.2 MCHC 33.1 RDW 13.7 Plt Count 235 MPV 10.5 Neut # (Auto) 17.0 H Lymph # (Auto) 0.7 L [place] # (Auto) 1.0 Eos # (Auto) 0.0 Baso # (Auto) 0.0 Absolute Nucleated RBC 0.00 Nucleated RBC % 0.0 PT 26.7 H INR 2.5 H Sodium Potassium Chloride Carbon Dioxide Anion Gap BUN Creatinine Estimated GFR (MDRD) Glucose POC Whole Bld Glucose 155 H Calcium Total Bilirubin AST ALT Alkaline Phosphatase Total Creatine Kinase Total Protein Albumin Globulin Albumin/Globulin Ratio Ethyl Alcohol 06/20/22 13:30 WBC RBC Hgb Hct MCV MCH MCHC RDW Plt Count MPV Neut # (Auto) Lymph # (Auto) Dixie # (Auto) Eos # (Auto) Baso # (Auto) Absolute Nucleated RBC Nucleated RBC % PT INR Sodium 138 Potassium 4.4 Chloride 103 Carbon Dioxide 23 Anion Gap 12.0 BUN < 5 L Creatinine 0.8 Estimated GFR (MDRD) 95 Glucose 138 H POC Whole Bld Glucose Calcium 9.4 Total Bilirubin 3.9 H AST 58 H ALT 32 Alkaline Phosphatase 70 Total Creatine Kinase 649 H Total Protein 7.7 Albumin 4.2 Globulin 3.5 Albumin/Globulin Ratio 1.2 Ethyl Alcohol < 5.0 - Rads (name of study) CTA Head/neck Radiology: EMP read contemporaneously (50% stenosis of the cavernous portions of the bilateral ICA d/t atheromatous calcifications <50% stenosis within the intracranial aspect of the left vert artery. 1. Luminal narrowing at the origin of the left ICA of ~50%) PD MEDICAL DECISION MAKING - ED course ED course: 71-year-old gentleman presents with acute altered mental status of unclear etiology. Brought in as a stroke code but he is not a tPA candidate due to unclear time course and therapeutic INR. CTA of the head and neck were negative for acute trauma, he does have some areas of 50% or so stenosis. This was followed by MR which was negative for evidence of acute changes. Spoke with Dr. Barreto for observation at 5:54 PM. Departure - Departure Disposition: ED Place in Observation Clinical Impression: Adequate anticoagulation on anticoagulant therapy, Hyperbilirubinemia, Atrial fibrillation, Transient global amnesia, History of mechanical aortic valve replacement Condition: Stable
[2022-06-20 13:38] LABS: BASOPHILS % (AUTO) 0.1 %; EOSINOPHILS % (AUTO) 0.2 %; HCT - HEMATOCRIT 47.2 % (42.0-52.0); HGB - HEMOGLOBIN 15.6 g/dL (14.0-18.0); LYMPHOCYTES # (AUTO) 0.7 10^3/uL (1.5-3.5); LYMPHOCYTES % (AUTO) 3.5 %; MEAN CORPUSCULAR HEMOGLOBIN 29.2 pg (27.0-31.0); MEAN CORPUSCULAR HGB CONC 33.1 g/dL (32.0-36.0); MEAN CORPUSCULAR VOLUME 88.4 fL (80.0-94.0); MEAN PLATELET VOLUME 10.5 fL (7.4-11.4); MONOCYTES % (AUTO) 5.2 %; NEUTROPHILS % (AUTO) 90.6 %; PLT - PLATELET COUNT 235 10^3/uL (130-450); RED BLOOD COUNT 5.34 10^6/uL (4.70-6.10); RED CELL DISTRIBUTION WIDTH 13.7 % (12.0-15.0); WHITE BLOOD COUNT 18.8 x10^3/uL (4.8-10.8)
[2022-06-20 13:45] LABS: INR 2.5 (0.8-1.2); PT - PROTHROMBIN TIME 26.7 secs (9.9-12.6)
[2022-06-20] MEDS ORDERED: iohexoL-300 100 ML VIAL IVP ONE (13:51)
[2022-06-20 13:53] LABS: ALBUMIN 4.2 g/dL (3.2-5.5); ALBUMIN/GLOBULIN RATIO 1.2 (1.0-2.2); ALKALINE PHOSPHATASE 70 IU/L (42-121); ALT ALANINE AMINOTRANSFERASE 32 IU/L (10-60); AST ASPARTATE AMINOTRANSFERASE 58 IU/L (10-42); BILIRUBIN,TOTAL 3.9 mg/dL (0.2-1.0); BUN - BLOOD UREA NITROGEN < 5 mg/dL (6-20); CALCIUM 9.4 mg/dL (8.5-10.3); CARBON DIOXIDE - CO2 23 mmol/L (21-32); CHLORIDE 103 mmol/L (101-111); CK- CREATINE KINASE 649 IU/L (22-269); CREATININE 0.8 mg/dL (0.6-1.2); ETOH - ETHANOL < 5.0 mg/dL; GFR - MDRD 95 (>89); GLUCOSE 138 mg/dL (70-100); POTASSIUM 4.4 mmol/L (3.5-5.0); SODIUM 138 mmol/L (135-145); TOTAL PROTEIN 7.7 g/dL (6.7-8.2)
--- NOTE | 2022-06-20 15:10 | CT Report ---
PROCEDURE: ANGIO HEAD W/WO INDICATIONS: cva sx CONTRAST: IV CONTRAST: Isovue 300 ml: 80 PO CONTRAST: *NO PO CONTRAST TECHNIQUE: Precontrast 4.5 mm thick angled axial sections acquired from the foramen magnum to the vertex. Afte r the administration of intravenous contrast, 1 mm thick sections acquired through the [place] is. Postcontrast 4.5 mm thick sections then re-acquired from the foramen magnum to the vertex. 3-di mensional [id number]-[id number]-[id number] (MIP) and/or volume rendering reformats were acquired of the c entral intracranial vasculature. For radiation dose reduction, the following was used: automated ex posure control, adjustment of mA and/or kV according to patient size. COMPARISON: None. FINDINGS: Image quality: Excellent. Anterior circulation: Dense atheromatous calcifications are present bilaterally within the cavernous portions of the internal carotid arteries with at least 50% stenosis bilaterally. The flow within the paired anterior cerebral arteries is normal and symmetric. The flow within the middle cerebral [place] is normal and symmetric. The anterior communicating artery is seen. No aneurysms are seen. Posterior circulation: Visualized portions of the right vertebral artery demonstrate normal caliber. Dense atheromatous calcifications are present within the midportion of the intracranial portion of th e left vertebral artery with less than 50% stenosis. The vertebral arteries join to form a normal bob earing basilar artery. Flow within the posterior cerebral arteries is normal and symmetric. No aneur ysms are seen. CSF spaces: Ventricles are normal in size and shape. Basal cisterns are patent. No extra-axial flu id collections. Brain: No midline shift. No intracranial bleeds or masses. Workman-white matter interface appears int act. Skull and face: Calvarium and facial bones appear intact, without suspicious lesions. Sinuses: Visualized sinuses and mastoids are clear. IMPRESSION: 1. At least 50% stenosis of the cavernous portions of the bilateral internal carotid artery secondary to atheromatous calcifications. 2. Less than 50% stenosis within the intracranial aspect of the left vertebral artery. 3. No other stenosis, occlusion, or aneurysm. 4. No acute intracranial findings. Reviewed by: Gladis Calderon MD on 06/20/2022 3:09 PM PDT Approved by: Gladis Calderon MD on 06/20/2022 3:09 PM PDT Station ID: [id number]
--- NOTE | 2022-06-20 15:14 | CT Report ---
PROCEDURE: ANGIO NECK W INDICATIONS: cva sx CONTRAST: IV CONTRAST: Isovue 300 ml: 80 PO CONTRAST: *NO PO CONTRAST TECHNIQUE: After the administration of intravenous contrast, 1.5 mm axial sections acquired from the aortic arch to the [place] of [place]. Coronal 3-D maximum intensity projection (MIP) and/or volume rendering ref ormats were then performed. For radiation dose reduction, the following was used: automated exposur e control, adjustment of mA and/or kV according to patient size. COMPARISON: None. FINDINGS: Image quality: Excellent. Carotid system: The great vessels demonstrate a conventional anatomy as they arise from the aortic [facility]. The origins of the common carotid arteries appear patent. The common carotid arteries demonstr ate normal calibers and courses. Scattered atheromatous calcifications are present bilaterally at the carotid bulbs. There is likely approximately 50% narrowing at the origin of the left internal caroti d artery. The internal carotid arteries demonstrate normal caliber and course. Posterior circulation: The origins of the vertebral arteries appear patent. The more superior porti ons of the vertebral arteries demonstrate normal course and caliber. They join to form a normal appe aring basilar artery. Soft tissues: Visualized neck soft tissues demonstrate no suspicious abnormalities. The thyroid is normal in size and there are no incidental findings. Bones: No suspicious bony lesions. Visualized cervical spine appears normally aligned. IMPRESSION: 1. Luminal narrowing at the origin of the left internal carotid artery of approximately 50%. If furth er characterization is warranted, carotid duplex is recommended. 2. No other stenosis, occlusion, or aneurysm. Reviewed by: Gladis Calderon MD on 06/20/2022 3:13 PM PDT Approved by: Gladis Calderon MD on 06/20/2022 3:13 PM PDT Station ID: [id number]
[2022-06-20] MEDS ORDERED: METOPROLOL 5 MG/5 ML VIAL IVP STA (15:17)
--- NOTE | 2022-06-20 17:40 | MRI Report ---
PROCEDURE: Brain W/O INDICATIONS: Stroke symptoms TECHNIQUE: Noncontrast axial T1 spin echo, axial T2 fast spin echo, sagittal and axial FLAIR, coronal T2 fast sp in echo, axial gradient echo, axial diffusion and ADC through the brain. COMPARISON: 05/06/2019 MRI brain FINDINGS: No restricted diffusion to indicate recent ischemia. The major intracranial vascular flow-related sig nal voids are grossly maintained (T2 sequence utilized for vascular patency evaluation is motion). Mi dline structures are normal in configuration. No findings of mass effect or midline shift. There is m ild to moderate global cerebral volume loss and moderate chronic microvascular ischemic change. No un expected intracranial susceptibility. No gross orbital abnormality. Paranasal sinuses and mastoid air cells are predominantly clear. IMPRESSION: No acute intracranial finding. Moderate global cerebral volume loss and chronic microvascular ischemic change. Reviewed by: Marcelo Mckeon MD on 06/20/2022 5:39 PM PDT Approved by: Marcelo Mckeon MD on 06/20/2022 5:39 PM PDT Station ID: [id number]
[2022-06-20] MEDS ORDERED: oxyCODONE 5 MG TABLET PO PRN (17:52)
[2022-06-20] MEDS ORDERED: ONDANSETRON 4 MG/2 ML VIAL IVP PRN (17:52)
[2022-06-20] MEDS ORDERED: ACETAMINOPHEN 325 MG TABLET PO PRN (17:52)
[2022-06-20] MEDS ORDERED: SODIUM CHLORIDE FLUSH 0.9% 10 ML SYRINGE IVP PRN (17:52)
[2022-06-20] MEDS ORDERED: ONDANSETRON ODT 4 MG TABLET TL PRN (17:52)
[2022-06-20] MEDS ORDERED: LACTATED RINGERS 1,000 ML IV SCH (18:00)
--- NOTE | 2022-06-20 18:06 | HISTORY & PHYSICAL EXAMINATION ---
Chief Complaint - Chief Complaint Chief Complaint: acute confusion History of Present Illness - Admitted From Admitted From:: home via POV - History Obtained From Records Reviewed: [employer] [facility] History obtained from: Dr. Moody Exam Limitations: doesn't know where he is - History of Present Illness HPI Comment/Other: This gentleman was last seen yesterday by his friends and neighbors. At that time he was "normal". He has a past medical history of hypertension, coronary artery disease and a Saint Td valve for aortic stenosis. He is followed by her local primary care office. He was brought in by a friend because they went by the house to see him for a visit. They found him wandering aimlessly in the house and around the house. Not speaking. Not able to really be verbal. He is on Coumadin, and they saw bruising and abrasions to the elbows and the head; they also saw blood around the house. He has a history of total global amnesia. So they brought him to the emergency room. Temperature is 36.8. Heart rate was 127. Blood pressure 175/93. Respirations 20 and 98% on room air. In speaking to the emergency room provider all he can say is "I do not know" to any question that is asked of him. He is alert, follows commands and makes eye contact. The only time he change the "I do not know" was to say "damn" when the nurse put the IV in his hand. He has abrasions on top of his head, about the forehead. Supple neck. An irregularly irregular heart rate. Clear lungs. And again, able to follow commands. His electrolytes were normal. Random glucose 138. His bilirubin is elevated. It is 3.9. But in looking at the lab work since 2013 his bili is chronically elevated with the highest being 4.3 in December 2016. AST is mildly elevated at 58. In 2019 it was 55 and 57 but the rest of the time is been normal. CK is 649. White cell count is elevated at 18.8 but he is not anemic. INR is 2.5 on Coumadin. Ethyl alcohol is less than 5. Head and neck CT with angiogram had 50% stenosis of the cavernous portion of the bilateral internal carotid artery secondary to atheromatous calcifications. Less than 50% stenosis in the left vertebral artery. No other stenosis, occlusion or aneurysms. Brain MRI had moderate global cerebral volume loss and chronic microvascular ischemic changes Preliminary diagnosis is TIA versus another episode of total global amnesia. Will be placed in observation. When I reviewed his clinic chart, he was seen in April 2019. His sister was there to witness that he had several episodes of sudden disorientation and confusion about what he was doing. It was dramatic, out of character and the episodes continued throughout the day. He speech was clear, not having any weakness or paralysis. And he went to the emergency room. Work-up was done, the patient was observed overnight and sent home. At that time CT of the head did not show stroke. Subsequent brain MRI was normal. In speaking to his primary care provider that episode was not the only episode he has had. He had been "jamming with some friends" in the past and it happened then. And it also happened once when he was driving his brother to an emergency room. History - Past Medical History Cardiovascular: reports: Hypertension, High cholesterol, Atrial fibrillation (chronic), Valve disorder (Saint Td valve for aortic stenosis, [facility] 2004), Other (Sudden fatigue December 2016. Seen by general surgery for gallstones, cardiology for his A. fib and aortic valve, thyroid normal. Found to have low blood pressure and Lasix cut in half) Respiratory: reports: None Neuro: reports: CVA Endocrine/Autoimmune: reports: None GI: reports: Colon polyps (Tubular adenoma W/O high-grade dysplasia 04/2014), O ther (Chronic LFT elevation. Ultrasound with/cholelithiasis. No obstruction. No family history of autoimmune disease. Hepatitis panel -2019. No EBONY done.) : reports: None Psych: reports: None Musculoskeletal: reports: Osteoarthritis, Chronic back pain (For years. Has had physical therapy) Derm: reports: Other (Onychomycosis for which he has had antifungals twice in the last 10 years) MRSA Hx?: No - Past Surgical History Cardiovascular: reports: Valve replacement HEENT: reports: Tonsil/Adenoidectomy - Family & Social History Family History Comment/Other: Mom had obesity, diabetes, stroke [place], . Dad had stroke, . Brother is , has a history of heart disease, sister has diabetes, obesity. 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 He currently lives with his sister and brother in law but is working on getting his own place. He denies alcohol use but states he will have a beer every once in a while. Endorses marijuana use on nearly a daily basis. He denies illicit drug use.Former smoker that quit in 1979. - Substance History Use: Uses substance without health or social issues: Cannabis - POLST Patient has POLST: No Meds/Allgy - Home Medications Home Medications: Ambulatory Orders Medication Instructions Recorded Confirmed Warfarin Sodium [Jantoven] 2.5 mg PO MOWEFR 04/25/14 06/20/22 Metoprolol Tartrate 50 mg PO BID 05/06/19 06/20/22 Warfarin [Coumadin] 1.25 mg PO SUTUTHSA 05/06/19 06/20/22 lisinopriL [Lisinopril] 40 mg PO DAILY 06/20/22 06/20/22 - Allergies Allergies/Adverse Reactions: Allergies Allergy/AdvReac Type Severity Reaction Status Date / Time No Known Drug Allergies Allergy Verified 07/28/19 11:15 Review of Systems - Constitutional Constitutional: reports: Weight loss (He really worked on exercise and diet in 2017 and lost about 10 or 15 pounds), Other (Review of systems obtained by reviewing all of his notes in his office clinical chart. Patient is really not able to answer my questions.). denies: Fatigue, Fever, Chills - Eyes Eyes: denies: Pain, Spots in vision, Field loss, Vision loss - Ears, Nose & Throat Ears, Nose & Throat: reports: Hearing loss, Nasal discharge (Rhinorrhea. Uses Flonase and better), Nasal congestion (Off-and-on. Nose is always stuffy.) - Cardiovascular Cariovascular: reports: Lightheadedness. denies: Palpitations, Chest pain, Edema - Respiratory Respiratory: reports: Other (Did get treated for pneumonia on the basis of symptoms in 2018). denies: Cough, Sputum production, Wheezing - Gastrointestinal Gastrointestinal: denies: Abdominal pain, Abdominal distention, Constipation, Diarrhea - Genitourinary Genitourinary: denies: Dysuria, Frequency, Urgency, Hematuria - Musculoskeletal Musculoskeletal: reports: Muscle aches, Joint pain, Other (Does go to the gym to workout) - Integumentary Integumentary: denies: Rash, Pruritis, Lesions, Dryness - Neurological Neurological: reports: Dizziness - Psychiatric Psychiatric: denies: Depression, Anxiety, Suicidal - Endocrine Endocrine: denies: Polyuria, Polydypsia, Polyphagia - Hematologic/Lymphatic Hematologic/Lymphatic: reports: Bruising. denies: Anemia, Petechiae, Blood lisa ts, Lymphadenopathy Prior Level of Functionality: Described as independent with activities of daily living in his clinical office chart. 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 Pays his own bills. Exam - Vital Signs Reviewed Vital Signs: Yes Vital Signs: Vital Signs x48h Temp Pulse Resp BP Pulse Ox 06/20/22 17:22 106 H 18 163/91 H 99 06/20/22 16:20 101 H 18 179/85 H 98 06/20/22 16:05 95 18 145/86 H 97 06/20/22 15:50 110 H 18 148/88 H 98 06/20/22 15:35 100 140/82 H 06/20/22 15:30 94 171/97 H 06/20/22 15:24 120 H 172/98 H 06/20/22 15:22 101 H 171/97 H 99 06/20/22 14:18 100 163/78 H 97 06/20/22 13:06 36.8 C 127 H 20 175/93 H 98 - Physical Exam General Appearance: positive: Alert, Other (Balding, cooperative white male, smiles at me nervously, abrasions on top of his head, right arm, left hollins) Eyes Bilateral: positive: PERRL, EOMI, Other (Wearing glasses) ENT: positive: Pharynx nml, No signs of dehydration Neck: positive: No JVD. negative: Stiff neck Respiratory: positive: No respiratory distress. negative: Wheezes, Rales, Rhonchi Cardiovascular: positive: Irregularly irregular, Tachycardia (At slightly above 100 sometimes) Peripheral Pulses: positive: 1+ Abdomen: positive: Non-tender, No organomegaly, Nml bowel sounds, No distention Skin: positive: Warm, Dry, Other (Skin tears right forearm, large bruise right elbow, tense slightly red dorsum right hand) Extremities: positive: No pedal edema. negative: Full ROM (Right wrist and right MCP swollen, slightly tender and cannot fully flex or extend) Neurologic/Psychiatric: positive: CN's nml (2-12), Motor nml, Other (Smiles nervously and says "really" when I speak to him. Unable to verbalize answers to questions) Conclusion/Plan - Problem List (1) Transient global amnesia Conclusion/Plan: He is able to use his words and the limited way described as above. There is no infection. No stroke on MRI or CT. Plan: Observation status Check toxicology screen Contact family (2) Atrial fibrillation Conclusion/Plan: He takes anticoagulation for this. Also takes metoprolol. I will resume those medications while here. Qualifiers: Atrial fibrillation type: longstanding persistent Qualified Code(s): I48.11 - Longstanding persistent atrial fibrillation (3) History of mechanical aortic valve replacement Conclusion/Plan: He has been seen by cardiology twice. Once was fatigue and the other was for dizziness. Echocardiogram in 2017 was normal. No arrhythmias seen other than the chronic atrial fibrillation. As such she is dizziness was not attributed to his cardiac status. (4) Hypertension Conclusion/Plan: Blood pressure is mildly elevated in the ED. Systolic is 148, 179, 163, 171. Will make sure that he takes his home medications overnight. And continue to observe Qualifiers: Hypertension type: primary hypertension Qualified Code(s): I10 - Essential (primary) hypertension (5) Adequate anticoagulation on anticoagulant therapy Conclusion/Plan: Seen for an INR yesterday and his clinician's office and it was normal. Today's INR is again acceptable at 2.5 with his Coumadin dosing. (6) Right hand pain Conclusion/Plan: With slightly diminished flexion extension at the wrist and MCP joints. Knuckles are bruised. Plan: Check right hand film - Lab Results Lab results reviewed: Yes Fish Bones: 06/20/22 13:30 06/20/22 13:30 - Diagnostic Imaging Results Diagnostic Imaging Results: positive: Final report reviewed Core Measures - Anticipated LOS I expect patient to be DC'd or transferred within 96 hours.: Yes - DVT/VTE - Prophylaxis VTE/DVT Prophylaxis med ordered at admit?: Yes
[2022-06-20 19:24] LABS: CORONAVIRUS 229E-RESP PCR NOT DETECTED; CORONAVIRUS HKU1-RESP PCR NOT DETECTED; CORONAVIRUS NL63-RESP PCR NOT DETECTED; CORONAVIRUS OC43-RESP PCR NOT DETECTED
[2022-06-20 19:25] LABS: B. PARAPERTUSSIS- RESP PCR PAN NOT DETECTED; B. PERTUSSIS- RESP PCR PANEL NOT DETECTED; C. PNEUMONIAE- RESP PCR PANEL NOT DETECTED; HUMAN METAPNEUMOVIRUS NOT DETECTED; INFLUENZA A- RESP PCR PANEL NOT DETECTED; INFLUENZA B - RESP PCR PANEL NOT DETECTED; M. PNEUMONIAE- RESP PCR PANEL NOT DETECTED; PARAINFLUENZA VIRUS 1 NOT DETECTED; PARAINFLUENZA VIRUS 2 NOT DETECTED; PARAINFLUENZA VIRUS 3 NOT DETECTED; PARAINFLUENZA VIRUS 4 NOT DETECTED; RHINOVIRUS/ENTEROVIRUS NOT DETECTED; RSV- RESP PCR PANEL NOT DETECTED; SARS-CoV-2 -RESP PCR PANEL NOT DETECTED
[2022-06-20] MEDS ORDERED: WARFARIN 2.5 MG TABLET PO SCH (20:00)
[2022-06-20] MEDS: METOPROLOL TARTRATE 50 MG TABLET PO SCH (20:53)
--- NOTE | 2022-06-20 21:47 | XRAY Report ---
PROCEDURE: Hand 2 View RT INDICATIONS: fall, R wrist and hand swollen, pain TECHNIQUE: 2 views of the hand acquired. COMPARISON: None. FINDINGS: Bones: No fractures or dislocations. No suspicious bony lesions. Soft tissues: No suspicious soft tissue calcifications. IMPRESSION: 1. No fracture or dislocation. Reviewed by: Erasmo Radford MD on 06/20/2022 9:45 PM PDT Approved by: Erasmo Radford MD on 06/20/2022 9:45 PM PDT Station ID: [id number]
[2022-06-21] MEDS: SODIUM CHLORIDE FLUSH 0.9% 10 ML SYRINGE IVP SCH ×4 (02:45→23:40)
[2022-06-21 05:02] LABS: BASOPHILS % (AUTO) 0.2 %; EOSINOPHILS % (AUTO) 0.1 %; HCT - HEMATOCRIT 39.2 % (42.0-52.0); HGB - HEMOGLOBIN 12.9 g/dL (14.0-18.0); LYMPHOCYTES % (AUTO) 10.5 %; MEAN CORPUSCULAR HEMOGLOBIN 29.5 pg (27.0-31.0); MEAN CORPUSCULAR HGB CONC 32.9 g/dL (32.0-36.0); MEAN CORPUSCULAR VOLUME 89.7 fL (80.0-94.0); MEAN PLATELET VOLUME 10.8 fL (7.4-11.4); MONOCYTES % (AUTO) 7.7 %; NEUTROPHILS % (AUTO) 81.1 %; PLT - PLATELET COUNT 221 10^3/uL (130-450); RED BLOOD COUNT 4.37 10^6/uL (4.70-6.10); RED CELL DISTRIBUTION WIDTH 13.8 % (12.0-15.0); WHITE BLOOD COUNT 19.8 x10^3/uL (4.8-10.8)
[2022-06-21 05:06] LABS: INR 3.7 (0.8-1.2); PT - PROTHROMBIN TIME 38.4 secs (9.9-12.6)
[2022-06-21 05:07] LABS: ABNORMAL LYMPHS % (MANUAL) 0 %
[2022-06-21 05:12] LABS: ALBUMIN 3.7 g/dL (3.2-5.5); ALBUMIN/GLOBULIN RATIO 1.4 (1.0-2.2); BILIRUBIN,TOTAL 3.7 mg/dL (0.2-1.0); CREATININE 0.8 mg/dL (0.6-1.2); POTASSIUM 4.4 mmol/L (3.5-5.0); TOTAL PROTEIN 6.4 g/dL (6.7-8.2)
[2022-06-21 05:29] LABS: BAND NEUTROPHILS % (MANUAL) 1 %; LYMPHOCYTES # (MANUAL) 2.8 10^3/uL (1.5-3.5); LYMPHOCYTES % (MANUAL) 14 %; MONOCYTES # (MANUAL) 1.2 10^3/uL (0.0-1.0); NEUTROPHILS # (MANUAL) 15.8 10^3/uL (1.5-6.6); PLATELET ESTIMATE, MANUAL NORMAL (130-450,000) (NORMAL); RBC MORPHOLOGY (MULTIPLE) NORMAL APPEARANCE (NORMAL)
[2022-06-21 05:30] LABS: DIFFERENTIAL COMMENT MANUAL DIFFERENTIAL
[2022-06-21] MEDS: METOPROLOL TARTRATE 50 MG TABLET PO SCH ×2 (08:44→20:29)
[2022-06-21] MEDS: lisinopriL 20 MG TABLET PO SCH (08:44)
--- NOTE | 2022-06-21 11:06 | PHARMACY PROGRESS NOTE ---
- Best Possible Medication History Admit Date and Time: 06/20/22 5815 Processed by: Pharmacy Medication History completed: Yes Patient Interview: Pt unable to participate Secondary Source(s): Physician records, Pharmacy records, Insurance records As the person ultimately responsible for medication therapy, providers are able to order a medication from an existing home medication list in [facility] via the "Reconcile Routine" prior to Confirmation of that medication by direct support worker. Such practice is discouraged except when the physician, in their clinical judgment, deems that a medical need exists for a medication without regard to previous use.
[2022-06-21 11:18] LABS: INR 3.9 (0.8-1.2); PT - PROTHROMBIN TIME 40.6 secs (9.9-12.6)
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
[2022-06-21 15:57] LABS: MUDS CUTOFF CONCENTRATIONS CUTOFF CONC BELOW:
[2022-06-21 16:55] LABS: AMPHETAMINE SCREEN,URINE NEGATIVE (NEGATIVE); BARBITURATE SCREEN,UR NEGATIVE (NEGATIVE); BENZODIAZEPINES SCREEN, URINE NEGATIVE (NEGATIVE); COCAINE SCREEN URINE NEGATIVE (NEGATIVE); METHADONE SCREEN, URINE NEGATIVE (NEGATIVE); METHAMPHETAMINES SCREEN, URINE NEGATIVE (NEGATIVE); OPIATE SCREEN, URINE NEGATIVE (NEGATIVE); OXYCODONE SCREEN, URINE NEGATIVE (NEGATIVE); PROPOXYPHENE SCREEN, URINE NEGATIVE (NEGATIVE); THC CANNABINOID SCREEN, URINE POSITIVE (NEGATIVE); TRICYCLIC ANTIDEPRESSANT,URINE NEGATIVE (NEGATIVE)
[2022-06-21] MEDS ORDERED: WARFARIN 2.5 MG TABLET PO SCH (19:01)
[2022-06-22] MEDS: lisinopriL 20 MG TABLET PO SCH (08:34)
[2022-06-22] MEDS: METOPROLOL TARTRATE 50 MG TABLET PO SCH (08:34)
[2022-06-22] MEDS: SODIUM CHLORIDE FLUSH 0.9% 10 ML SYRINGE IVP SCH (08:35)
--- NOTE | 2022-06-22 11:13 | Discharge Plan ---
Discharge Plan Problem Reviewed?: Yes Disposition: Home, Self Care Condition: Stable Diet: Regular Activity Restrictions: Activity as Tolerated Shower Restrictions: No Driving Restrictions: Yes (no driving until memory returns) Health Concerns: You have now had another episode of inability to speak. It is sudden. You are confused. We have evaluated you for stroke but your CT of the head and your MRI of the head do not show stroke. In looking at your medical record in your clinic office you had an episode of this in April 2019. You also had a previous episode where you were "jamming with your friends" and had a similar episode. We do not think it is truly transient global amnesia because that tends to happen only once in a person's life. This is now the third time this is happening to you. You were gradually recovering but still not back at baseline. You went from not being able to speak to being able to speak short simple sentences. Your memory is still poor. You do not remember what anybody told you. Plan of Treatment: 1. Please see your primary care provider in follow-up. They will need to refer you to a neurologist. We think a neurologist should assess what the diagnosis could be including possible seizure disorder. They may need to do an EEG. 2. Please do not drive until your memory completely returns. 3. There will be no change your medication at this time. Care Goals: To return back to your independent life in your apartment. To be able to take care of yourself. Assessment: Patient is getting help from his sister. She had a stroke herself this October. She will be having him stay at their house for the next couple of days. Follow-Up Care: Outpatient Rehab - OT No Smoking: If you smoke, Please STOP! Call for help. Follow-up with: Willow Rich ARNP [Primary Care Provider] -
[2022-06-22 11:31] LABS: INR 2.6 (0.8-1.2); PT - PROTHROMBIN TIME 27.1 secs (9.9-12.6)
--- NOTE | 2022-06-22 12:10 | DISCHARGE SUMMARY ---
Discharge Summary Admit Date: 06/20/22 Discharge Date: 06/22/22 Discharging Provider: Mary Barreto MD Primary Care Provider: STEPHAN Segura Code Status: Attempt Resuscitation Condition at Discharge: Stable Discharge Disposition: 01 Home, Self Care - DIAGNOSES Discharge Diagnoses with Status of Each Condition: 1. Sudden expressive aphasia With Transient amnesia, May be posttraumatic 2. Chronic atrial fibrillation 3. History of mechanical aortic valve replacement 4. Hypertension 5. Adequate anticoagulation on anticoagulant therapy 6. Right hand pain - HPI History of Present Illness: This gentleman was last seen yesterday by his friends and neighbors. At that time he was "normal". He has a past medical history of hypertension, coronary artery disease and a Saint Td valve for aortic stenosis. He is followed by her local primary care office. He was brought in by a friend because they went by the house to see him for a visit. They found him wandering aimlessly in the house and around the house. Not speaking. Not able to really be verbal. He is on Coumadin, and they saw bruising and abrasions to the elbows and the head; they also saw blood around the house. He has a history of total global amnesia. So they brought him to the emergency room. Temperature is 36.8. Heart rate was 127. Blood pressure 175/93. Respirations 20 and 98% on room air. In speaking to the emergency room provider all he can say is "I do not know" to any question that is asked of him. He is alert, fol lows commands and makes eye contact. The only time he change the "I do not know" was to say "damn" when the nurse put the IV in his hand. He has abrasions on top of his head, about the forehead. Supple neck. An irregularly irregular heart rate. Clear lungs. And again, able to follow commands. His electrolytes were normal. Random glucose 138. His bilirubin is elevated. It is 3.9. But in looking at the lab work since 2013 his bili is chronically elevated with the highest being 4.3 in December 2016. AST is mildly elevated at 58. In 2019 it was 55 and 57 but the rest of the time is been normal. CK is 649. White cell count is elevated at 18.8 but he is not anemic. INR is 2.5 on Coumadin. Ethyl alcohol is less than 5. Head and neck CT with angiogram had 50% stenosis of the cavernous portion of the bilateral internal carotid artery secondary to atheromatous calcifications. Less than 50% stenosis in the left vertebral artery. No other stenosis, occlusion or aneurysms. Brain MRI had moderate global cerebral volume loss and chronic microvascular ischemic changes Preliminary diagnosis is TIA versus another episode of total global amnesia. Will be placed in observation. When I reviewed his clinic chart, he was seen in April 2019. His sister was there to witness that he had several episodes of sudden disorientation and confusion about what he was doing. It was dramatic, out of character and the episodes continued throughout the day. He speech was clear, not having any weakness or paralysis. And he went to the emergency room. Work-up was done, the patient was observed overnight and sent home. At that time CT of the head did not show stroke. Subsequent brain MRI was normal. In speaking to his primary care provider that episode was not the only episode he has had. He had been "jamming with some friends" in the past and it happened then. And it also happened once when he was driving his brother to an emergency room. - Past Medical History Cardiovascular: reports: Hypertension, High cholesterol, Atrial fibrillation (chronic), Valve disorder (Saint Td valve for aortic stenosis, [facility] 2004), Other (Sudden fatigue December 2016. Seen by general surgery for gallstones, cardiology for his A. fib and aortic valve, thyroid normal. Found to have low blood pressure and Lasix cut in half) Respiratory: reports: None Neuro: reports: CVA Endocrine/Autoimmune: reports: None GI: reports: Colon polyps (Tubular adenoma W/O high-grade dysplasia 04/2014), Other (Chronic LFT elevation. Ultrasound with/cholelithiasis. No obstruction. No family history of autoimmune disease. Hepatitis panel -2019. No EBONY done.) : reports: None Psych: reports: None Musculoskeletal: reports: Osteoarthritis, Chronic back pain (For years. Has had physical therapy) Derm: reports: Other (Onychomycosis for which he has had antifungals twice in the last 10 years) MRSA Hx?: No - Past Surgical History Cardiovascular: reports: Valve replacement HEENT: reports: Tonsil/Adenoidectomy - CONSULTS | PROCEDURES Procedures: 1. Head CT angiogram has less than 50% stenosis of cavernous portions of bilate ral internal carotids. Less than 50% stenosis within the intracranial aspect of left vertebral. No other stenosis, and no other acute findings. 2. MRI of brain with moderate global cerebral volume loss and chronic microvascular changes. No acute findings. 3. Hand x-ray without fracture or dislocation - HOSPITAL COURSE Hospital Course: When he was in the emergency room the patient was essentially nonverbal. No spontaneous conversation and his only response to questions was "I do not know". By the next day he was speaking in full sentences. Able to answer questions but had no memory of the day before and could not remember anything I said withi n minutes of me saying it. He was repetitive, perseverating. But he did not spontaneously initiate conversation. He is feeding himself, getting up to the bathroom and toileting himself. His vital signs have stayed stable. There have been no further episodes other than he still not back at baseline in a gentleman who lives alone and is stated that he independent with driving, cleaning his apartment, grocery shopping, etc. Temperature is 37.4. Heart rate 95. Blood pressure 147/82. Respirations 18. 98% on room air. He is 5 foot 8 inches tall, 76.5 kg. He has healing abrasions on the top of his scalp from when he presented in the emergency room. His right hand is much less swollen but still you to see subcutaneous bruising over the knuckles of his right hand, dorsum of hand. Lungs are clear. He has irregular rate and rhythm. INR on admission was 2.5. He went up to 3.9 on June 21. Coumadin was held and INR was 2.6 on the time of discharge. Greater than 30 minutes was spent coordinating discharge. He is to not change any of his medications. I am recommending that he see his primary care provider in follow-up so that he can be referred to neurology for an opinion regarding these episodes since this is probably episode #4. He may need an EEG. - ALLERGIES Allergies/Adverse Reactions: Allergies Allergy/AdvReac Type Severity Reaction Status Date / Time No Known Drug Allergies Allergy Verified 07/28/19 11:15 - MEDICATIONS Home Medications: Ambulatory Orders Medication Instructions Recorded Confirmed Warfarin Sodium [Jantoven] 2.5 mg PO MOWEFR 04/25/14 06/20/22 Metoprolol Tartrate 50 mg PO BID 05/06/19 06/20/22 Warfarin [Coumadin] 1.25 mg PO SUTUTHSA 05/06/19 06/20/22 lisinopriL [Lisinopril] 40 mg PO DAILY 06/20/22 06/20/22 - LABS Result Diagrams: 06/21/22 04:31 06/21/22 04:31
[2022-06-22 16:56] VITALS: BP 111/82
== END 2022-06-22 16:40 | disposition home or self-care (01) | DRG 71 ==
LOC: ED 13:04 → MS2 17:52 → OBSVTOIN 06-21 14:56
PROVIDERS: ADMIT Specialist; ATTEND Specialist
DX: G45.4 Transient global amnesia (principal); I25.10 Atherosclerotic heart disease of native coronary artery without angina pectoris; E80.6 Other disorders of bilirubin metabolism; I48.11 Longstanding persistent atrial fibrillation; I48.20 Chronic atrial fibrillation, unspecified; R47.01 Aphasia; I10 Essential (primary) hypertension; M79.641 Pain in right hand; E80.7 Disorder of bilirubin metabolism, unspecified; R74.01 Elevation of levels of liver transaminase levels; M25.531 Pain in right wrist; R22.31 Localized swelling, mass and lump, right upper limb; M25.431 Effusion, right wrist; Z20.822 Contact with and (suspected) exposure to COVID-19; D72.829 Elevated white blood cell count, unspecified; E78.00 Pure hypercholesterolemia, unspecified; Z87.891 Personal history of nicotine dependence; M19.90 Unspecified osteoarthritis, unspecified site; G89.29 Other chronic pain; M54.9 Dorsalgia, unspecified; S00.01XA Abrasion of scalp, initial encounter; X58.XXXA Exposure to other specified factors, initial encounter; R42 Dizziness and giddiness; S40.811A Abrasion of right upper arm, initial encounter; S80.812A Abrasion, left lower leg, initial encounter; S60.00XA Contusion of unspecified finger without damage to nail, initial encounter; Z79.01 Long term (current) use of anticoagulants; Z79.899 Other long term (current) drug therapy; Z82.3 Family history of stroke; Z83.3 Family history of diabetes mellitus; Z82.49 Family history of ischemic heart disease and other diseases of the circulatory system; Z83.49 Family history of other endocrine, nutritional and metabolic diseases; Z86.73 Personal history of transient ischemic attack (TIA), and cerebral infarction without residual deficits; Z95.2 Presence of prosthetic heart valve
CPT/HCPCS: 36415; 70496; 70498; 70551; 73120; 80053; 80306; 82550; 85025; 85610; 87633; 93005; 99281; 99285; A9270; G0480; J7120; Q9967; 80320

== ENCOUNTER 2022-07-04 08:00 | Outpatient (CLI) | payer MEDICARE, MEDICAID | END 2022-07-04 23:59 | disposition home or self-care (01) | LOC: LAB.S 08:00 | PROVIDERS: ATTEND Registered Nurse | DX: I48.91 Unspecified atrial fibrillation (principal); Z95.2 Presence of prosthetic heart valve; Z79.01 Long term (current) use of anticoagulants ==

== ENCOUNTER 2022-08-16 13:47 | Outpatient (CLI) | payer MEDICARE, MEDICAID | END 2022-08-16 13:48 | disposition home or self-care (01) | LOC: LAB.S 13:47 | PROVIDERS: ATTEND Registered Nurse | DX: Z79.01 Long term (current) use of anticoagulants (principal) | CPT/HCPCS: 36416; 85610 ==

== ENCOUNTER 2022-09-20 14:17 | Outpatient (CLI) | payer MEDICARE, MEDICAID | END 2022-09-20 14:18 | disposition home or self-care (01) | LOC: LAB.S 14:17 | PROVIDERS: ATTEND Registered Nurse | DX: Z79.01 Long term (current) use of anticoagulants (principal) | CPT/HCPCS: 36416; 85610 ==

== ENCOUNTER 2022-10-27 10:23 | Outpatient (CLI) | payer MEDICARE, MEDICAID | END 2022-10-27 23:59 | disposition short-term general hospital (02) | LOC: EMS 10:23 | DX: R47.81 Slurred speech (principal); R29.810 Facial weakness; R41.89 Other symptoms and signs involving cognitive functions and awareness; R26.81 Unsteadiness on feet; R53.1 Weakness | CPT/HCPCS: A0425; A0429 ==